=== PATIENT | female | born 2000 | race Two or more races ===

== ENCOUNTER 2024-09-06 09:39 | Outpatient (AMB) | payer MEDICAID, SELFPAY ==
--- NOTE | 2024-09-06 09:55 | OBCLNT_ITS ---
Vital Signs 09/06/24 09:56 Height 1.59 m Height Method Stated Weight 101.661 kg Weight Measurement Method Standing Scale BMI 40.3 BP 122/84 Blood Pressure Source Automatic Cuff Blood Pressure Location Left Upper Arm Position Left Lateral Respiration 18 Pulse 105 H Pulse Source Monitor Temp 97.5 F Temp Source Oral Pulse Oximetry (%) 95 Oxygen Delivery Method Room Air Allergies/Home Meds Allergies & Medications Allergies No Known Allergies Allergy (Verified 09/06/24 09:57) Medication Reconciliation [id number] 1 mg tablet 1 tab PO QDAY 11/02/20 [History Confirmed 09/06/24] Intake Visit Data Collection New Patient or Established: Established Patient (seen at [facility] within 3 years) Reason for Visit:: care Seen by Clinical Staff ONLY (RN/MA): No Passenger Service Representative Required: No Do You Feel Safe at Home: Yes Authorities Contacted: N/A PCP or OBGYN visit in last 3 months: Yes Date of Last PCP or OBGYN visit: 07/09/24 Hx Now: Yes Are you currently on any form of Control: No Last menstrual period: 03/20/21 Pain Present Currently: No Pain Scale Used: Beck-Patel/Numerical Pain scale:: 0 Smoking Status Smoking Status: Never smoker Questionnaires Covid-19 Vaccine Questionnaire Has patient been vacinated for Covid-19 Have you been vacinated for Covid-19: No PHQ-9 PHQ-2 Over the last 2 weeks, how often have you been bothered by any of the following problems? 1. Little interest or pleasure in doing things: not at all 2. Feeling down, depressed, or hopeless: not at all Total score: 0 PHQ-9 3. Trouble falling or staying asleep, or sleeping too much: Not at all 4. Feeling tired or having little energy: Not at all 5. Poor appetite or overeating: Not at all 6. Feeling bad about yourself - or that you are a failure or have let yourself or your family down: Not at all 7. Trouble concentrating on things, such as reading the newspaper or watching television: Not at all 8. Moving or speaking so slowly that other people could have noticed? - Or the opposite - being so fidgety or restless that you have been moving around a lot more than usual: not at all 9. Thoughts that you would be better off or of hurting yourself in some way: Not at all Total score: 0 Source: Developed by Drs. Jose Manuel Cat, Lyla Lee, Sam Epperson and colleagues, with an educational rodrigo from [employer]. Depression screen completed yes Social History Living Situation History Marital Status: Single Lives With: Family Housing: Apartment Housing Other:: pt lives with her parents Tobacco History Smoking Status: Never smoker Second Hand Smoke Exposure: No Alcohol History Alcohol Intake: Former Last Drank: Unknown Substance Use History Substance Use: no Domestic Abuse History Do You Feel Safe at Home: Yes Past Medical History Past Medical History Have you ever been diagnosed with any of the following: Neurological Problems Seizures: No Guillain-[place] Syndrome: No Migraine: No Cardiology Problems Cardiac Arrhythmia: No Heart Murmur: No Hypercholesterolemia: No Deep Vein Thrombosis: No Hypertension: No Respiratory Problems Asthma: No Pneumonia: No Tuberculosis: No Pulmonary Embolism: No Sleep Apnea: No Stomache/Intestinal Problems Hepatitis: No Gall Bladder Disease: No Hemorrhoids: No Gastroesophageal Reflux Disease: No Obesity: No Genital/Urinary Problems Renal Disease: No Kidney Stones: No Reproductive Problems Breast Cancer: No Endometriosis: No Fibroids: No Genital Herpes: No Gonorrhea: No Pelvic Inflammatory Disease: No Polycystic Ovarian Syndrome: No Previous Pregnancies: Yes ( 2020) Syphilis: No Musculoskeletal Problems Rheumatoid Arthritis: No Scoliosis: No Carpal Tunnel Syndrome: No Fibromyalgia: No Endocrine Problems Diabetes Mellitus Type 2: No (Father) Hyperthyroidism: No Hypothyroidism: No (Mother) Systemic Lupus Erythematosus: No Blood Problems Anemia: No Clotting Problems: No Psychologic Problems Depression: No Anxiety: No Attention Deficit Disorder: No Other Problems Hospitalization: Yes (For 2020 [facility]) Autoimmune Disease: No Blood Transfusions: No Surgical History Appendectomy: No Bariatric Surgery: No Cholecystectomy: No History of Present Illness HPI Narrative 23 y/o at 29 weeks presents for OB visit. Started care at [facility]. Having trouble getting follow up appointments. Good FM, no LOF, No UCs, No VB. [facility] records reviewed and up to date. Needs GCT. OB Initial Visit Menstrual History Menstrual reliability: definite Flow: normal Menstrual regularity: regular Monthly: Yes Age at menarche: 11 On control pills at conception: No Date of positive home test: 07/09/24 Associated symptoms (LMP): Reports breast tenderness OB History : 2 Para: 1 Hx Total # of Abortions (Spontaneous & Elective): 0 # of Living Children: 1 Delivery History 1st : date: 03/20/21 sex: female Gestational age at delivery (weeks): 36 Delivery type: vaginal weight (lbs): 2720 g Delivery complications: IOL 36-37 weeks for Gestational HTN. Had epidural Did not push long. At [facility] History of depression before or after : No Infection History & Risk Evaluation History of STDs: none Patient or partner has history of Genital Herpes: No Varicella/chicken pox status: immunized Genetic Screening & History Genetic Screening/Teratology Counseling - Includes patient, baby's father, or anyone in either family with: 1. Patient's age 35 years or older as of estimated date of delivery: No 2. Thalassemia (Armenian, Equatorial Guinean, Mediterranean, or Background); MCV less than 80: No 3. Neural Tube Defect (Meningomyelocele, Spina Bifida, or Anencephaly): No 4. Congenital Heart Defect: No 5. Down Syndrome: No 6. Kwadwo-Sachs (Ashkenazi Oriental Orthodox, Cajun, Maltese [place]): No 7. Dominik Disease (Ashkenazi Oriental Orthodox): No 8. Familial Dysautonomia (Ashkenazi Oriental Orthodox): No 9. Sickle Cell Disease or Trait (): No 10. Hemophilia or other blood disorders: No 11. Muscular Dystrophy: No 12. Cystic Fibrosis: No 13. Stringer's Chorea: No 14. Mental Retardation/Autism: No 15. Other inherited genetic or chromosomal disorder: No 16. Maternal Metabolic Disorder (EG,TYPE 1 Diabetes, PKU): No 17. Patient or baby's father had a child with defects not listed above: No 18. Recurrent loss or a stillbirth: No 19. Medications (including supplements, vitamins, herbs or otc drugs)/illicit/recreational drugs/alcohol since last menstrual period: Yes 20. Any other: No Infection History 1. Live with someone with TB or exposed to TB: No 2. Rash or viral illness since last menstrual period: No 3. Hepatitis B,C: No Other (see comments) Source: [employer] OB Flowsheet OB Flowsheet Initial Weight: Not Recorded Date -?-?-?-?-?-?-?-?-?-?-?-?- EGA Weight Edema CTX Effacement BP Fundal ht Pres Dilation Effacement Station Visit Note Alb Glu FHR Mov 09/06/24 -?-?-?-?-?-?-?-?-?-?-?-?- 29w 1d 101.661 kg 122/84 150 absent Review of Systems Review of Systems Systems Reviewed: All systems reviewed, normal except as documented Assessment & Plan Diagnosis / Problem List (1) : Status: Acute Qualifiers: Weeks of gestation: 29 weeks Qualified Code(s): Z3A.29 - 29 weeks gestation of Additional Plan Ordered 1 hour GCT. All [facility] records reviewed Follow Up: 2 Weeks Office Procedures OB Clinic LOC & Office Proc's Nursing/Assessment Patient Status: Established Patient OB Clinic Nursing Assessment: Medication Reconciliation, Update PMH in EMR and Vital Signs OB Clinic Coordination of Care: Complex Care and Chronic Disease 1-5, Consent,records obtained, informed consent, Education Simp Pt/Fam, Lab and Imaging orders and Staff clarify orders Special Needs: Heart tones Established Patient Charge Established Patient Point Assignment: 130 Established Patient Point Charge: EP Level 4 (120-155) OB Ultrasound OB Ultrasound Indication(s):: Viability Ultrasound technique:: transabdominal Embryo/ Assessment 1: Cardiac activity confirmation:: Yes Placental location & appearance:: Fundal Amniotic fluid assessment:: Adequate
[2024-09-06 09:56] VITALS: BP 122/84; PULSE 105; RESP 18; TEMP 36.4; O2SAT 95; BMI 40.3
== END 2024-09-06 10:30 | disposition home or self-care (01) ==
LOC: HODSOBC 09:39
PROVIDERS: PCP Family Medicine; Supervising Provider Obstetrics & Gynecology; Visit Provider Obstetrics & Gynecology
DX: Z34.83 Encounter for supervision of other normal pregnancy, third trimester (principal); Z3A.29 29 weeks gestation of pregnancy
CPT/HCPCS: 76801; 99214; G0463

== ENCOUNTER 2024-09-25 08:53 | Outpatient (AMB) | payer MEDICAID, SELFPAY ==
[2024-09-25 09:05] VITALS: BP 111/72; PULSE 104; RESP 16; TEMP 36.2; O2SAT 96; BMI 40.2
--- NOTE | 2024-09-25 09:05 | OBCLNT_ITS ---
Vital Signs 09/25/24 09:05 Height 1.59 m Height Method Stated Weight 101.718 kg Weight Measurement Method Standing Scale BMI 40.2 BP 111/72 Blood Pressure Source Automatic Cuff Blood Pressure Location Left Upper Arm Position Sitting Respiration 16 Pulse 104 H Pulse Source Monitor Temp 97.2 F Temp Source Oral Pulse Oximetry (%) 96 Oxygen Delivery Method Room Air Allergies/Home Meds Allergies & Medications Allergies No Known Allergies Allergy (Verified 09/25/24 09:06) Medication Reconciliation [id number] 1 mg tablet 1 tab PO QDAY 11/02/20 [History Confirmed 09/25/24] aspirin 81 mg tablet,delayed release 162 mg (2 x 81 mg) PO QDAY 30 days #60 tabs 09/25/24 [Rx] Intake Visit Data Collection New Patient or Established: Established Patient (seen at [facility] within 3 years) Reason for Visit:: Routine visit at 31 weeks and 2 days gestation. Seen by Clinical Staff ONLY (RN/MA): No Residential Counselor Required: No Do You Feel Safe at Home: Yes Authorities Contacted: N/A PCP or OBGYN visit in last 3 months: Yes Date of Last PCP or OBGYN visit: 09/06/24 Hx Now: Yes Are you currently on any form of Control: No Pain Present Currently: No Pain Scale Used: Beck-Patel/Numerical Pain scale:: 0 Smoking Status Smoking Status: Never smoker Questionnaires Covid-19 Vaccine Questionnaire Has patient been vacinated for Covid-19 Have you been vacinated for Covid-19: Yes PHQ-9 PHQ-2 Over the last 2 weeks, how often have you been bothered by any of the following problems? 1. Little interest or pleasure in doing things: not at all 2. Feeling down, depressed, or hopeless: not at all Total score: 0 PHQ-9 3. Trouble falling or staying asleep, or sleeping too much: Not at all 4. Feeling tired or having little energy: Not at all 5. Poor appetite or overeating: Not at all 6. Feeling bad about yourself - or that you are a failure or have let yourself or your family down: Not at all 7. Trouble concentrating on things, such as reading the newspaper or watching television: Not at all 8. Moving or speaking so slowly that other people could have noticed? - Or the opposite - being so fidgety or restless that you have been moving around a lot more than usual: not at all 9. Thoughts that you would be better off or of hurting yourself in some way: Not at all Total score: 0 Source: Developed by Drs. Jose Manuel Cat, Lyla Lee, Sam Epperson and colleagues, with an educational rodrigo from [employer]. Depression screen completed yes Social History Living Situation History Lives With: Family Housing: Apartment Housing Other:: pt lives with her parents Tobacco History Smoking Status: Never smoker Second Hand Smoke Exposure: No Alcohol History Alcohol Intake: Former Substance Use History Substance Use: no Domestic Abuse History Do You Feel Safe at Home: Yes Past Medical History Past Medical History Have you ever been diagnosed with any of the following: Neurological Problems Cerebrovascular Accident (CVA): No Transient Ischemic Attacks (TIA): No Brain Tumor: No Meningitis: No Seizures: No Multiple Sclerosis: No Cerebral Palsy: No Guillain-Stock[place] Syndrome: No Migraine: No Cardiology Problems Cardiac Arrhythmia: No Atrial Fibrillation: No Angina: No Heart Murmur: No Coronary Artery Disease: No Atherosclerotic Heart Disease: No Hypercholesterolemia: No Aneurysm: No Congestive Heart Failure: No Deep Vein Thrombosis: No Hypertension: No Hypotension: No Varicose Veins: No Respiratory Problems Chronic Obstructive Pulmonary Disease (COPD): No Asthma: No Bronchitis: No Emphysema: No Pneumonia: No Pulmonary Fibrosis: No Tuberculosis: No Pulmonary Embolism: No Pulmonary Edema: No Sleep Apnea: No CPAP Dependent: No Respiratory Aspiration: No Dyspnea: No Orthopnea: No Hx Cough: No Cough: No Wheezing: No Chest Deformities: No Smoking: No Smoking Exposure: No Tobacco Use: No Clubbing: No Exposure to Respiratory Irritants: No Intubation: No Stomache/Intestinal Problems Liver Cancer: No Hepatitis: No Gall Bladder Disease: No Hemorrhoids: No Gastroesophageal Reflux Disease: No Obesity: No Genital/Urinary Problems Renal Disease: No Kidney Stones: No Polycystic Kidney Disease: No Neurogenic Bladder: No Dialysis: No Reproductive Problems Breast Cancer: No Endometriosis: No Fibroids: No Genital Herpes: No Gonorrhea: No Pelvic Inflammatory Disease: No Polycystic Ovarian Syndrome: No Previous Pregnancies: Yes ( 2020) Syphilis: No Musculoskeletal Problems Muscular Dystrophy: No Myasthenia Gravis: No Marfan's Syndrome: No Rheumatoid Arthritis: No Scoliosis: No Carpal Tunnel Syndrome: No Fibromyalgia: No Endocrine Problems Diabetes Mellitus Type 1: No Diabetes Mellitus Type 2: No (Father) Hyperthyroidism: No Hypothyroidism: No (Mother) Systemic Lupus Erythematosus: No Blood Problems Anemia: No Leukemia: No Hemophilia: No Thalassemia: No Sickle Cell Disease: No Clotting Problems: No Psychologic Problems Bipolar Disorder: No Depression: No Anxiety: No Behavior Problems: No Attention Deficit Disorder: No Other Problems Hospitalization: Yes (For [facility]) Down Syndrome: No Autism: No Developmental Delay: No Shingles: No Blood Transfusions: No Blood Transfusion Reaction: No Anesthesia Reactions: No Organ Transplant: No MRSA: No Clostridium Difficile: No Cancer: No Surgical History Appendectomy: No Bariatric Surgery: No Cholecystectomy: No History of Present Illness HPI Narrative Aye Martinez is a 24-year-old at 31 weeks and 2 days gestation presenting for routine care. Her estimated due date is November 21. She was previously receiving care at [facility], but her records are not available for review. The patient has a history of gestational hypertension in her prior , which required delivery at 36 weeks. Her previous delivery was vaginal and uneventful. The patient reports that her recent appointments at the previous clinic were frequently canceled. She has had limited testing, with only two lab tests performed throughout her , including a diabetes screening test completed last Monday. She has experienced difficulties obtaining a referral for ultrasound studies due to administrative issues at her previous clinic. - History of gestational hypertension in previous - Previous required delivery at 36 weeks due to exacerbation of gestational hypertension - Previous vaginal delivery Review of Systems Review of Systems Systems Reviewed: All systems reviewed, normal except as documented Visit GLADYS Calculator Estimated Delivery Date Method Current WG Current Estimate 11/21/24 LMP (Uncertain) 31w 6d Initial Weight: Not Recorded Date -?-?-?-?-?-?-?-?-?-?-?-?- EGA Weight Edema CTX Effacement BP Fundal ht Pres Dilation Effacement Station Visit Note Alb Glu FHR Mov 09/06/24 -?-?-?-?-?-?-?-?-?-?-?-?- 29w 1d 101.661 kg 122/84 150 absent Exam General Limitations: no limitations General Appearance: alert, in no apparent distress, comfortable, cooperative, healthy appearing, well developed and well groomed Head Head exam: atraumatic, normocephalic and normal inspection Neck Neck exam: Present normal inspection, full ROM and trachea midline Chest Chest inspection: Present normal inspection and symmetric chest wall rise Abdominal Abdominal exam: Present soft and normal bowel sounds Extremities Extremities exam: Present normal inspection and full ROM Back Back exam: Present normal inspection and full ROM Psych Psychiatric exam: Present normal affect and normal mood Skin Skin exam: Present warm, dry, intact and normal color Assessment & Plan Diagnosis / Problem List (1) History of pre-eclampsia in prior , currently : Status: Acute (2) Supervision of high risk , unspecified, third trimester: Status: Acute Plan: - Heart rate: 135 beats per minute at 31 weeks 2 days gestation Aye Martinez is a 24-year-old at 31 weeks and 2 days gestation with an estimated due date of November 21. She has a history of gestational hypertension in her previous , which required delivery at 36 weeks. The patient has had limited care and testing at her previous clinic. Recent glucose tolerance test was performed, but results are pending. heart rate was noted to be 135 bpm during this visit. - Order stat referral for detailed ultrasound at [facility] - Perform catch-up labs: CBC, RPR, kidney and liver function tests - Prescribe aspirin for preeclampsia prevention to be filled at [facility] - Schedule follow-up appointment next week to review lab results. - NST-BPP to start immediately. Inadequate care Patient reports multiple canceled appointments and delays in referrals at her previous clinic. She has only had two visits and a recent glucose esdras ance test in her current . Records from her previous care provider are not available for review. - Obtain medical records from [facility] - Perform catch-up labs and testing - Schedule regular visits to ensure adequate monitoring Office Procedures OB Clinic LOC & Office Proc's Nursing/Assessment Patient Status: Established Patient OB Clinic Nursing Assessment: BP Monitoring, Medication Reconciliation, Update PMH in EMR and Vital Signs OB Clinic Coordination of Care: Consent,records obtained, informed consent, Education Simp Pt/Fam and Staff clarify orders Special Needs: Heart tones Established Patient Charge Established Patient Point Assignment: 105 Established Patient Point Charge: EP Level 3 (80-115)
== END 2024-09-25 09:21 | disposition home or self-care (01) ==
LOC: HODSOBC 08:53
PROVIDERS: PCP Family Medicine; Supervising Provider Obstetrics & Gynecology; Visit Provider Obstetrics & Gynecology
DX: O09.93 Supervision of high risk pregnancy, unspecified, third trimester (principal); Z3A.31 31 weeks gestation of pregnancy
CPT/HCPCS: 99213; G0463

== ENCOUNTER 2024-10-01 08:49 | Outpatient (AMB) | payer MEDICAID, SELFPAY ==
[2024-10-01 09:00] VITALS: BP 118/79; PULSE 102; RESP 18; TEMP 36.3; O2SAT 98; BMI 39.9
--- NOTE | 2024-10-01 09:00 | AMB.OBVISIT ---
Vital Signs 10/01/24 09:00 Height 1.6 m Height Method Stated Weight 102.228 kg Weight Measurement Method Standing Scale BMI 39.9 BP 118/79 Blood Pressure Source Automatic Cuff Blood Pressure Location Left Upper Arm Position Sitting Respiration 18 Pulse 102 H Pulse Source Monitor Temp 97.3 F Temp Source Oral Pulse Oximetry (%) 98 Oxygen Delivery Method Room Air Allergies/Home Meds Allergies & Medications Allergies No Known Allergies Allergy (Verified 10/01/24 09:01) Medication Reconciliation [id number] 1 mg tablet 1 tab PO QDAY 11/02/20 [History Confirmed 10/01/24] aspirin 81 mg tablet,delayed release 162 mg (2 x 81 mg) PO QDAY 30 days #60 tabs 09/25/24 [Rx Confirmed 10/01/24] Intake Visit Data Collection New Patient or Established: Established Patient (seen at [facility] within 3 years) Reason for Visit:: CARE/LAB RESULTS 32w5d Seen by Clinical Staff ONLY (RN/MA): No Director Of Event Management Required: No Do You Feel Safe at Home: Yes Authorities Contacted: N/A PCP or OBGYN visit in last 3 months: Yes Date of Last PCP or OBGYN visit: 09/25/24 Hx Now: Yes Are you currently on any form of Control: No Last menstrual period: 03/15/24 Pain Present Currently: No Pain Scale Used: Beck-Patel/Numerical Pain scale:: 0 Smoking Status Smoking Status: Never smoker Questionnaires Covid-19 Vaccine Questionnaire Has patient been vacinated for Covid-19 Have you been vacinated for Covid-19: No PHQ-9 PHQ-2 Over the last 2 weeks, how often have you been bothered by any of the following problems? 1. Little interest or pleasure in doing things: not at all 2. Feeling down, depressed, or hopeless: not at all Total score: 0 PHQ-9 3. Trouble falling or staying asleep, or sleeping too much: Not at all 4. Feeling tired or having little energy: Not at all 5. Poor appetite or overeating: Not at all 6. Feeling bad about yourself - or that you are a failure or have let yourself or your family down: Not at all 7. Trouble concentrating on things, such as reading the newspaper or watching television: Not at all 8. Moving or speaking so slowly that other people could have noticed? - Or the opposite - being so fidgety or restless that you have been moving around a lot more than usual: not at all 9. Thoughts that you would be better off or of hurting yourself in some way: Not at all Total score: 0 Source: Developed by Drs. Jose Manuel Cat, Lyla Lee, Sam Epperson and colleagues, with an educational rodrigo from [employer]. Depression screen completed yes Social History Living Situation History Lives With: Family Housing: Apartment Housing Other:: pt lives with her parents Tobacco History Smoking Status: Never smoker Second Hand Smoke Exposure: No Alcohol History Alcohol Intake: Former Substance Use History Substance Use: no Domestic Abuse History Do You Feel Safe at Home: Yes Past Medical History Past Medical History Have you ever been diagnosed with any of the following: Neurological Problems Cerebrovascular Accident (CVA): No Transient Ischemic Attacks (TIA): No Brain Tumor: No Meningitis: No Seizures: No Multiple Sclerosis: No Cerebral Palsy: No Guillain-Carrie Syndrome: No Migraine: No Cardiology Problems Cardiac Arrhythmia: No Atrial Fibrillation: No Angina: No Heart Murmur: No Coronary Artery Disease: No Atherosclerotic Heart Disease: No Hypercholesterolemia: No Aneurysm: No Congestive Heart Failure: No Deep Vein Thrombosis: No Hypertension: No Hypotension: No Varicose Veins: No Respiratory Problems Chronic Obstructive Pulmonary Disease (COPD): No Asthma: No Bronchitis: No Emphysema: No Pneumonia: No Pulmonary Fibrosis: No Tuberculosis: No Pulmonary Embolism: No Pulmonary Edema: No Sleep Apnea: No CPAP Dependent: No Respiratory Aspiration: No Dyspnea: No Orthopnea: No Hx Cough: No Cough: No Wheezing: No Chest Deformities: No Smoking: No Smoking Exposure: No Tobacco Use: No Clubbing: No Exposure to Respiratory Irritants: No Intubation: No Stomache/Intestinal Problems Liver Cancer: No Hepatitis: No Gall Bladder Disease: No Hemorrhoids: No Gastroesophageal Reflux Disease: No Obesity: No Genital/Urinary Problems Renal Disease: No Kidney Stones: No Polycystic Kidney Disease: No Neurogenic Bladder: No Dialysis: No Reproductive Problems Breast Cancer: No Endometriosis: No Fibroids: No Genital Herpes: No Gonorrhea: No Pelvic Inflammatory Disease: No Polycystic Ovarian Syndrome: No Previous Pregnancies: Yes ( 2020) Syphilis: No Musculoskeletal Problems Muscular Dystrophy: No Myasthenia Gravis: No Marfan's Syndrome: No Bone Cancer: No Arthritis: No Rheumatoid Arthritis: No Osteoporosis: No Degenerative Disk Disease: No Gout: No Scoliosis: No Carpal Tunnel Syndrome: No Fibromyalgia: No Degenerative Joint Disease: No Osteomyelitis: No Poliovirus: No Head,Eye,Nose,Throat Problems Cataracts: No Glaucoma: No Blind: No Retinal Detachment: No Macular Degeneration: No Chronic Ear Infections: No Deafness: No Eye Prosthesis: No Endocrine Problems Diabetes Mellitus Type 1: No Diabetes Mellitus Type 2: No (Father) Hyperthyroidism: No Hypothyroidism: No (Mother) Systemic Lupus Erythematosus: No Blood Problems Anemia: No Leukemia: No Hemophilia: No Thalassemia: No Sickle Cell Disease: No Clotting Problems: No Psychologic Problems Bipolar Disorder: No Depression: No Anxiety: No Behavior Problems: No Attention Deficit Disorder: No Other Problems Hospitalization: Yes (For [facility]) Autoimmune Disease: No Down Syndrome: No Autism: No Developmental Delay: No Shingles: No Blood Transfusions: No Blood Transfusion Reaction: No Anesthesia Reactions: No Organ Transplant: No MRSA: No Clostridium Difficile: No Cancer: No Surgical History Appendectomy: No Bariatric Surgery: No Cholecystectomy: No History of Present Illness HPI Narrative Aye is a 24-year-old at 32 weeks and 5 days presenting for a return visit and review of lab results. She has a history of preeclampsia with 36-week delivery in her prior . On September 26, 2024, the patient denied any obstetric complaints. The patient reports that this feels very different from her previous one. Laboratory, Imaging, and Diagnostic Test Results - CBC, platelet count, CMP, uric acid, LDH, and spot vqudk-kcsrlga-cgccdoclxy ratio are all within normal limits. Review of Systems Review of Systems Systems Reviewed: All systems reviewed, normal except as documented Visit GLADYS Calculator Estimated Delivery Date Method Current WG Current Estimate 11/21/24 LMP (Uncertain) 32w 5d Initial Weight: Not Recorded Date <del>?</del> EGA Weight Edema CTX Effacement BP Fundal ht Pres Dilation Effacement Station Visit Note Alb Glu FHR Mov 09/06/24 <del>?</del> 29w 1d 101.661 kg 122/84 150 absent 10/01/24 <del>?</del> 32w 5d 102.228 kg 118/79 Labs ok. No complaints, 135 Exam General Limitations: no limitations General Appearance: alert, in no apparent distress, comfortable, cooperative, healthy appearing, well developed and well groomed Head Head exam: atraumatic, normocephalic and normal inspection Neck Neck exam: Present normal inspection, full ROM and trachea midline Chest Chest inspection: Present normal inspection and symmetric chest wall rise Abdominal Abdominal exam: Present soft and normal bowel sounds Extremities Extremities exam: Present normal inspection and full ROM Back Back exam: Present normal inspection and full ROM Psych Psychiatric exam: Present normal affect and normal mood Skin Skin exam: Present warm, dry, intact and normal color Assessment & Plan Diagnosis / Problem List (1) History of pre-eclampsia in prior , currently : Status: Acute (2) Supervision of high risk , unspecified, third trimester: Status: Acute Plan: at 32 weeks 5 days, [id number] Patient is a 24-year-old [id number] at 32 weeks and 5 days gestation presenting for routine visit and lab result review. History of preeclampsia with 36-week delivery in prior . Recent labs including CBC, platelet count, CMP, uric acid, LDH, and spot ridyd-keabaqv-tabbkjvgkk ratio are all within normal limits. No current signs of preeclampsia development. Patient denies any obstetric complaints. Current appears to be progressing differently from previous one with preeclampsia. - Pending referral for NST and BPP at the hospital - Pending referral for detailed anatomy ultrasound with maternal- medicine specialist - Continue visits every 2 weeks until 37 weeks, then transition to weekly visits - Monitor for signs of preeclampsia development - Patient to be alert for calls from [facility] for ultrasound appointment (3) Abdominal pain affecting : Status: Acute Additional Assessment MDM: Aye Martinez is a 24-year-old [id number] at 32 weeks and 5 days gestation with a history of preeclampsia in her previous , presenting for a routine visit and lab result review. The patient's recent laboratory tests, including CBC, platelet count, CMP, uric acid, LDH, and spot epfwn-rsexibm-gocbjyzahl ratio, are all within normal limits, indicating no current signs of preeclampsia development. This is particularly reassuring given her history of preeclampsia at 36 weeks in her prior . The normal lab results suggest a lower likelihood of preeclampsia recurring in this , especially considering she has already reached 32 weeks without complications. The clinician notes that if preeclampsia hasn't developed by now, it is very unlikely to occur, supporting a more optimistic prognosis for carrying the to term without early delivery. Additional Plan Follow Up: 2 Weeks Office Procedures OB Clinic LOC & Office Proc's Nursing/Assessment Patient Status: Established Patient OB Clinic Nursing Assessment: Medication Reconciliation, Update PMH in EMR and Vital Signs OB Clinic Coordination of Care: Complex Care and Chronic Disease 1-5, Consent,records obtained, informed consent, Education Simp Pt/Fam, Results/Orders obtained and Staff clarify orders Special Needs: Heart tones Established Patient Charge Established Patient Point Assignment: 120 Established Patient Point Charge: EP Level 4 (120-155)
== END 2024-10-01 09:13 | disposition home or self-care (01) ==
LOC: HODSOBC 08:49
PROVIDERS: PCP Obstetrics & Gynecology; Referring Provider Obstetrics & Gynecology; Supervising Provider Obstetrics & Gynecology; Visit Provider Obstetrics & Gynecology
DX: O09.93 Supervision of high risk pregnancy, unspecified, third trimester (principal); Z3A.32 32 weeks gestation of pregnancy; R10.9 Unspecified abdominal pain
CPT/HCPCS: 99214; G0463

== ENCOUNTER → 2024-10-09 | Outpatient (CLI) | payer MEDICAID, SELFPAY ==
--- NOTE | 2024-10-09 14:30 | XR_ITS ---
Examination: Complete OB ultrasound greater than 14 weeks Date and time of exam: October 09, 2024 at 1443 hours INDICATIONS: Diagnosis high risk , preeclampsia prior pregnancies Findings: Viable intrauterine single fetus with single amniotic sac presentation cephalic Cardiac motion 143 BPM Percent the anterior grade 3 Umbilical cord insertion 3 vessel seen. Amniotic fluid index 13.7 cm spine maternal right Cervix 3.9 cm Right ovary 3.8 cm arterial flow Left ovary 6.6 cm arterial flow to 3.2 x 2.7 x 3.1 cm cyst Composite estimated gestational age based on BPD, head circumference, abdominal circumference, femur length is 33 weeks 5 days Estimated weight 2239 g. Survey of intracranial anatomy, spinal anatomy, abdominal anatomy, four-chamber heart performed with no abnormalities identified. Impression: Viable intrauterine gestation cephalic presentation.
== END | disposition home or self-care (01) ==
PROVIDERS: PCP Obstetrics & Gynecology; Referring Provider Obstetrics & Gynecology; Visit Provider Obstetrics & Gynecology
DX: Z34.90 Encounter for supervision of normal pregnancy, unspecified, unspecified trimester (principal)
CPT/HCPCS: 76805

== ENCOUNTER 2024-10-17 15:28 | Outpatient (AMB) | payer MEDICAID, SELFPAY ==
--- NOTE | 2024-10-17 15:27 | OBCLNT_ITS ---
Vital Signs 10/17/24 15:42 Height 1.6 m Height Method Stated Weight 102.172 kg Weight Measurement Method Standing Scale BMI 39.9 BP 123/80 Blood Pressure Source Automatic Cuff Blood Pressure Location Left Upper Arm Position Sitting Respiration 16 Pulse 113 H Pulse Source Monitor Temp 96.8 F Temp Source Oral Pulse Oximetry (%) 97 Oxygen Delivery Method Room Air Allergies/Home Meds Allergies & Medications Allergies No Known Allergies Allergy (Verified 10/17/24 15:44) Medication Reconciliation [id number] 1 mg tablet 1 tab PO QDAY 11/02/20 [History Confirmed 10/17/24] aspirin 81 mg tablet,delayed release 162 mg (2 x 81 mg) PO QDAY 30 days #60 tabs 09/25/24 [Rx Confirmed 10/17/24] Intake Visit Data Collection New Patient or Established: Established Patient (seen at [facility] within 3 years) Reason for Visit:: OBC Seen by Clinical Staff ONLY (RN/MA): No Computer Numerical Control Machinist Required: No Do You Feel Safe at Home: Yes Authorities Contacted: N/A PCP or OBGYN visit in last 3 months: Yes Date of Last PCP or OBGYN visit: 10/01/24 Hx Now: Yes Are you currently on any form of Control: No Pain Present Currently: Yes Pain Location: Head Pain Scale Used: Beck-Patel/Numerical Pain scale:: 8 Smoking Status Smoking Status: Never smoker Questionnaires Covid-19 Vaccine Questionnaire Has patient been vacinated for Covid-19 Have you been vacinated for Covid-19: Yes PHQ-9 PHQ-2 Over the last 2 weeks, how often have you been bothered by any of the following problems? 1. Little interest or pleasure in doing things: not at all 2. Feeling down, depressed, or hopeless: not at all Total score: 0 PHQ-9 3. Trouble falling or staying asleep, or sleeping too much: Not at all 4. Feeling tired or having little energy: Not at all 5. Poor appetite or overeating: Not at all 6. Feeling bad about yourself - or that you are a failure or have let yourself or your family down: Not at all 7. Trouble concentrating on things, such as reading the newspaper or watching television: Not at all 8. Moving or speaking so slowly that other people could have noticed? - Or the opposite - being so fidgety or restless that you have been moving around a lot more than usual: not at all 9. Thoughts that you would be better off or of hurting yourself in some way: Not at all Total score: 0 If you checked off any problems, how difficult have these problems made it for you to do your work, take care of things at home, or get along with other peopl e?: not difficult at all Source: Developed by Drs. Jose Manuel Cat, Lyla Lee, Sam Epperson and colleagues, with an educational rodrigo from [employer]. Depression screen completed yes Social History Living Situation History Lives With: Family Housing: Apartment Housing Other:: pt lives with her parents Tobacco History Smoking Status: Never smoker Second Hand Smoke Exposure: No Alcohol History Alcohol Intake: Former Substance Use History Substance Use: no Domestic Abuse History Do You Feel Safe at Home: Yes Past Medical History Past Medical History Have you ever been diagnosed with any of the following: Neurological Problems Cerebrovascular Accident (CVA): No Transient Ischemic Attacks (TIA): No Brain Tumor: No Meningitis: No Seizures: No Multiple Sclerosis: No Cerebral Palsy: No Guillain-Crestline Syndrome: No Migraine: No Cardiology Problems Cardiac Arrhythmia: No Atrial Fibrillation: No Angina: No Heart Murmur: No Coronary Artery Disease: No Atherosclerotic Heart Disease: No Hypercholesterolemia: No Aneurysm: No Congestive Heart Failure: No Deep Vein Thrombosis: No Hypertension: No Hypotension: No Varicose Veins: No Respiratory Problems Chronic Obstructive Pulmonary Disease (COPD): No Asthma: No Bronchitis: No Emphysema: No Pneumonia: No Pulmonary Fibrosis: No Tuberculosis: No Pulmonary Embolism: No Pulmonary Edema: No Sleep Apnea: No CPAP Dependent: No Respiratory Aspiration: No Dyspnea: No Orthopnea: No Hx Cough: No Cough: No Wheezing: No Chest Deformities: No Smoking: No Smoking Exposure: No Tobacco Use: No Clubbing: No Exposure to Respiratory Irritants: No Intubation: No Stomache/Intestinal Problems Liver Cancer: No Hepatitis: No Gall Bladder Disease: No Hemorrhoids: No Gastroesophageal Reflux Disease: No Obesity: No Genital/Urinary Problems Renal Disease: No Kidney Stones: No Polycystic Kidney Disease: No Neurogenic Bladder: No Dialysis: No Reproductive Problems Breast Cancer: No Endometriosis: No Fibroids: No Genital Herpes: No Gonorrhea: No Pelvic Inflammatory Disease: No Polycystic Ovarian Syndrome: No Previous Pregnancies: Yes ([facility] 2020) Syphilis: No Musculoskeletal Problems Muscular Dystrophy: No Myasthenia Gravis: No Marfan's Syndrome: No Bone Cancer: No Arthritis: No Rheumatoid Arthritis: No Osteoporosis: No Degenerative Disk Disease: No Gout: No Scoliosis: No Carpal Tunnel Syndrome: No Fibromyalgia: No Degenerative Joint Disease: No Osteomyelitis: No Poliovirus: No Head,Eye,Nose,Throat Problems Cataracts: No Glaucoma: No Blind: No Retinal Detachment: No Macular Degeneration: No Chronic Ear Infections: No Deafness: No Eye Prosthesis: No Endocrine Problems Diabetes Mellitus Type 1: No Diabetes Mellitus Type 2: No (Father) Hyperthyroidism: No Hypothyroidism: No (Mother) Systemic Lupus Erythematosus: No Blood Problems Anemia: No Leukemia: No Hemophilia: No Thalassemia: No Sickle Cell Disease: No Clotting Problems: No Psychologic Problems Bipolar Disorder: No Depression: No Anxiety: No Behavior Problems: No Attention Deficit Disorder: No Other Problems Hospitalization: Yes (For [facility] 2020 [facility]) Down Syndrome: No Autism: No Developmental Delay: No Shingles: No Blood Transfusions: No Blood Transfusion Reaction: No Anesthesia Reactions: No Organ Transplant: No MRSA: No Clostridium Difficile: No Cancer: No Surgical History Appendectomy: No Bariatric Surgery: No Cholecystectomy: No History of Present Illness HPI Narrative Aye Martinez, a 35-week patient, presents for routine follow-up. She reports no contractions or other problems. The patient mentions feeling tired, which is noted as expected for her gestational age. She has been attending regular non-stress tests (NSTs) at the hospital, with her most recent visits occurring last week and this Monday. The patient is currently scheduled for weekly NSTs on Mondays. Aye is a 24-year-old She has a history of preeclampsia with 36- week delivery in her prior . On September 26, 2024, the patient denied any obstetric complaints. The patient reports that this feels very dif ferent from her previous one. Laboratory, Imaging, and Diagnostic Test Results - CBC, platelet count, CMP, uric acid, LDH, and spot uzaza-cqdxlvl-rbfnwbilau ratio are all within normal limits. No CTX/LOF/VB, reports good FM+ Review of Systems Review of Systems Systems Reviewed: All systems reviewed, normal except as documented Visit GLADYS Calculator Estimated Delivery Date Method Current WG Current Estimate 11/21/24 LMP (Uncertain) 35w 5d Initial Weight: Not Recorded Date -?-?-?-?-?-?-?-?-?-?-?-?- EGA Weight Edema CTX Effacement BP Fundal ht Pres Dilation Effacement Station Visit Note Alb Glu FHR Mov 09/06/24 -?-?-?-?-?-?-?-?-?-?-?-?- 29w 1d 101.661 kg 122/84 150 absent 10/01/24 -?-?-?-?-?-?-?-?-?-?-?-?- 32w 5d 102.228 kg 118/79 Lab s ok. No complaints, 135 Exam General Limitations: no limitations General Appearance: alert, in no apparent distress, comfortable, cooperative, healthy appearing, well developed and well groomed Head Head exam: atraumatic, normocephalic and normal inspection ENT ENT exam: Present normal exam, normal oropharynx and mucous membranes moist Neck Neck exam: Present normal inspection, full ROM and trachea midline Card Cardiovascular exam: Present regular rate, normal rhythm and normal heart sounds Abdominal Abdominal exam: Present soft and normal bowel sounds Extremities Extremities exam: Present normal inspection and full ROM Back Back exam: Present normal inspection and full ROM Psych Psychiatric exam: Present normal affect and normal mood Skin Skin exam: Present warm, dry, intact and normal color Assessment & Plan Diagnosis / Problem List (1) History of pre-eclampsia in prior , currently : Status: Acute (2) Supervision of high risk , unspecified, third trimester: Status: Acute Plan: at 35 weeks gestation Aye is a 35-week patient presenting for routine care. She reports feeling tired but denies contractions or other problems. Her blood pressure is 113, which is noted to be normal. She is receiving regular non- stress tests (NSTs) at the hospital on Mondays. - Continue weekly NSTs at the hospital on Mondays - Perform Group B Streptococcus (GBS) culture swab at 36 weeks (next week) - Ultrasound scheduled with Dr. Larsen (maternal- medicine specialist) on Monday - Provide work leave letter for next week as requested by patient - Follow-up appointment scheduled for next Monday Additional Plan Follow Up: 1 Week Office Procedures OB Clinic LOC & Office Proc's Nursing/Assessment Patient Status: Established Patient OB Clinic Nursing Assessment: BP Monitoring, Medication Reconciliation, Update PMH in EMR and Vital Signs OB Clinic Coordination of Care: Consent,records obtained, informed consent, Lab and Imaging orders and Staff clarify orders Special Needs: Heart tones Established Patient Charge Established Patient Point Assignment: 105 Established Patient Point Charge: EP Level 3 (80-115)
[2024-10-17 15:42] VITALS: BP 123/80; PULSE 113; RESP 16; TEMP 36; O2SAT 97; BMI 39.9
== END 2024-10-17 15:48 | disposition home or self-care (01) ==
LOC: HODSOBC 15:28
PROVIDERS: PCP Obstetrics & Gynecology; Referring Provider Obstetrics & Gynecology; Supervising Provider Obstetrics & Gynecology; Visit Provider Obstetrics & Gynecology
DX: O09.293 Supervision of pregnancy with other poor reproductive or obstetric history, third trimester (principal); O09.93 Supervision of high risk pregnancy, unspecified, third trimester; Z3A.35 35 weeks gestation of pregnancy
CPT/HCPCS: 99213; G0463

== ENCOUNTER 2024-10-22 14:04 | Outpatient (AMB) | payer MEDICAID, SELFPAY ==
--- NOTE | 2024-10-22 14:05 | AMB.OBVISIT ---
Vital Signs 10/22/24 14:11 Height 1.6 m Height Method Stated Weight 103.589 kg Weight Measurement Method Standing Scale BMI 40.4 BP 120/78 Blood Pressure Source Automatic Cuff Blood Pressure Location Left Upper Arm Position Sitting Respiration 18 Pulse 98 Pulse Source Monitor Temp 97.3 F Temp Source Oral Pulse Oximetry (%) 98 Oxygen Delivery Method Room Air Allergies/Home Meds Allergies & Medications Allergies No Known Allergies Allergy (Verified 11/13/24 07:54) Medication Reconciliation [id number] 1 mg tablet 1 tab PO QDAY 11/02/20 [History Confirmed 11/13/24] cefpodoxime 200 mg tablet 200 mg PO Q12H pyelonephritis #14 tabs 11/14/24 [Rx] ferrous sulfate 325 mg (65 mg iron) tablet,delayed release 325 mg PO Q OTHER DAY #30 tabs 11/14/24 [Rx] ibuprofen 600 mg tablet 600 mg PO Q6H PRN pain #30 tabs 11/14/24 [Rx] Intake Visit Data Collection New Patient or Established: Established Patient (seen at [facility] within 3 years) Reason for Visit:: - Request for doctor's note to go on leave starting October 24 - Follow-up on recent ultrasound results from Dr. Magana Seen by Clinical Staff ONLY (RN/MA): No Pricing Actuary Required: No Do You Feel Safe at Home: Yes Authorities Contacted: N/A PCP or OBGYN visit in last 3 months: Yes Hx Now: Yes Are you currently on any form of Control: No Pain Present Currently: No Pain Scale Used: Beck-Patel/Numerical Pain scale:: 0 Smoking Status Smoking Status: Never smoker Questionnaires Covid-19 Vaccine Questionnaire Has patient been vacinated for Covid-19 Have you been vacinated for Covid-19: Yes PHQ-9 PHQ-2 Over the last 2 weeks, how often have you been bothered by any of the following problems? 1. Little interest or pleasure in doing things: not at all 2. Feeling down, depressed, or hopeless: not at all Total score: 0 PHQ-9 3. Trouble falling or staying asleep, or sleeping too much: Not at all 4. Feeling tired or having little energy: Not at all 5. Poor appetite or overeating: Not at all 6. Feeling bad about yourself - or that you are a failure or have let yourself or your family down: Not at all 7. Trouble concentrating on things, such as reading the newspaper or watching television: Not at all 8. Moving or speaking so slowly that other people could have noticed? - Or the opposite - being so fidgety or restless that you have been moving around a lot more than usual: not at all 9. Thoughts that you would be better off or of hurting yourself in some way: Not at all Total score: 0 Source: Developed by Drs. Jose Manuel Cat, Lyla Lee, Sam Epperson and colleagues, with an educational rodrigo from [employer]. Depression screen completed yes Social History Living Situation History Lives With: Family Housing: Apartment Housing Other:: pt lives with her parents Tobacco History Smoking Status: Never smoker Second Hand Smoke Exposure: No Alcohol History Alcohol Intake: Former Substance Use History Substance Use: no Domestic Abuse History Do You Feel Safe at Home: Yes Past Medical History Past Medical History Have you ever been diagnosed with any of the following: Neurological Problems Cerebrovascular Accident (CVA): No Transient Ischemic Attacks (TIA): No Brain Tumor: No Meningitis: No Seizures: No Multiple Sclerosis: No Cerebral Palsy: No Guillain-[place] Syndrome: No Migraine: No Cardiology Problems Cardiac Arrhythmia: No Atrial Fibrillation: No Angina: No Heart Murmur: No Coronary Artery Disease: No Atherosclerotic Heart Disease: No Hypercholesterolemia: No Aneurysm: No Congestive Heart Failure: No Deep Vein Thrombosis: No Hypertension: No Hypotension: No Varicose Veins: No Respiratory Problems Chronic Obstructive Pulmonary Disease (COPD): No Asthma: No Bronchitis: No Emphysema: No Pneumonia: No Pulmonary Fibrosis: No Tuberculosis: No Pulmonary Embolism: No Pulmonary Edema: No Sleep Apnea: No CPAP Dependent: No Respiratory Aspiration: No Dyspnea: No Orthopnea: No Hx Cough: No Cough: No Wheezing: No Chest Deformities: No Smoking: No Smoking Exposure: No Tobacco Use: No Clubbing: No Exposure to Respiratory Irritants: No Intubation: No Stomache/Intestinal Problems Liver Cancer: No Hepatitis: No Gall Bladder Disease: No Hemorrhoids: No Gastroesophageal Reflux Disease: No Obesity: No Genital/Urinary Problems Renal Disease: No Kidney Stones: No Polycystic Kidney Disease: No Neurogenic Bladder: No Dialysis: No Reproductive Problems Breast Cancer: No Endometriosis: No Fibroids: No Genital Herpes: No Gonorrhea: No Pelvic Inflammatory Disease: No Polycystic Ovarian Syndrome: No Previous Pregnancies: Yes ([facility] 2020) Syphilis: No Musculoskeletal Problems Muscular Dystrophy: No Myasthenia Gravis: No Marfan's Syndrome: No Bone Cancer: No Arthritis: No Rheumatoid Arthritis: No Osteoporosis: No Degenerative Disk Disease: No Gout: No Scoliosis: No Carpal Tunnel Syndrome: No Fibromyalgia: No Degenerative Joint Disease: No Osteomyelitis: No Poliovirus: No Head,Eye,Nose,Throat Problems Cataracts: No Glaucoma: No Blind: No Retinal Detachment: No Macular Degeneration: No Chronic Ear Infections: No Deafness: No Eye Prosthesis: No Endocrine Problems Diabetes Mellitus Type 1: No Diabetes Mellitus Type 2: No (Father) Hyperthyroidism: No Hypothyroidism: No (Mother) Systemic Lupus Erythematosus: No Blood Problems Anemia: No Leukemia: No Hemophilia: No Thalassemia: No Sickle Cell Disease: No Clotting Problems: No Psychologic Problems Bipolar Disorder: No Depression: No Anxiety: No Behavior Problems: No Attention Deficit Disorder: No Other Problems Hospitalization: Yes (For [facility]) Down Syndrome: No Autism: No Developmental Delay: No Shingles: No Blood Transfusions: No Blood Transfusion Reaction: No Anesthesia Reactions: No Organ Transplant: No MRSA: No Clostridium Difficile: No Cancer: No Surgical History Appendectomy: No Bariatric Surgery: No Cholecystectomy: No History of Present Illness HPI Narrative - Aye Martinez is a patient presenting for follow-up after a recent obstetric ultrasound. - Patient had an ultrasound performed by Dr. Carbone on Monday, October 21, 2024. - Ultrasound findings: - Amniotic fluid measured at 12.9 - weight estimated at 5 pounds and 10 ounces (31st percentile) - Anatomy survey was normal except for a small ventricular septal defect (VSD) in the heart - Patient is requesting a doctor's note to go on leave starting October. - Patient reports qualifying for leave due to working 3 hours. No contractions/ LOF/VB, reports good FM No SANTORO/VC/RUQ/Epig pain Review of Systems Review of Systems Systems Reviewed: All systems reviewed, normal except as documented Visit GLADYS Calculator Estimated Delivery Date Method Current WG Current Estimate 11/21/24 LMP (Uncertain) 40w 1d Initial Weight: Not Recorded Date <del>?</del> EGA Weight Edema CTX Effacement BP Fundal ht Pres Dilation Effacement Station Visit Note Alb Glu FHR Mov 09/06/24 <del>?</del> 29w 1d 101.661 kg 122/84 150 absent 10/01/24 <del>?</del> 32w 5d 102.228 kg 118/79 Labs ok. No complaints, 135 10/22/24 <del>?</del> 35w 5d 103.589 kg 120/78 Aye Martinez, patient, presents for follow-up after recent ultrasound (10/21/[address] Carbone). No CTX/LOF/VB. Reports good FM. No SANTORO/VS, Epig/RUQ pain. Requesting doctor?s note for maternity leave starting 10/24/2024 (qualifies due to 3-hour workday). Ultrasound findings: EMILY: 12.9 EFW: 5 lb 10 oz (31st percentile) Anatomy: Normal except for small VSD Assessment & Plan: VSD noted on anatomy scan; otherwise reassuring growth and fluid levels. Provide leave note for 10/24/2024 Recommend echocardiogram to evaluate VSD 130 active 10/29/24 <del>?</del> 36w 5d 102.739 kg 117/81 She expresses a desire to expedite delivery, citing concerns about an upcoming graduation ceremony in approximately one month. No CTX/LOF/VB, reports good FM+. - Recommend staying active and spending more time on feet - Suggest walking for exercise - Advise using a bouncy ball (gym ball) to sit on to help baby's head descend - Discuss possibility of early induction if patient desires; patient to consider and inform at next week's appointment - Schedule weekly appointments leading up to delivery - Complete physician portion of disability claim form once patient provides necessary information (D-I-I-D or R number) 145 active 11/05/24 <del>?</del> 37w 5d 102.682 kg 125/84 2 para 1 presents for visit at 37 weeks 5 days treated for UTI on triage last week completing antibiotics and symptoms have improved denies any labor complaints care precautions, labor precautions, return in 1 week consider induction of labor at 39 weeks due to patient's need 145 active Exam General General Appearance: alert, in no apparent distress and healthy appearing Head Head exam: atraumatic Neck Neck exam: Present normal inspection and trachea midline Chest Chest inspection: Present normal inspection and symmetric chest wall rise External exam: Present normal external exam; Absent tenderness Neuro Neurological exam: Present oriented X3 Psych Psychiatric exam: Present normal affect and normal mood Assessment & Plan Diagnosis / Problem List (1) History of pre-eclampsia in prior , currently : Status: Acute (2) Supervision of high risk , unspecified, third trimester: Status: Acute Plan Problem List - Ventricular septal defect () Assessment - Ventricular septal defect (VSD) detected in fetus - Amniotic fluid level 12.9 - weight 5 pounds 10 ounces (31st percentile) - Anatomy survey normal except for VSD Plan - Provide doctor's note for maternity leave starting October 24 - Recommend echocardiogram for baby after to assess ventricular septal defect Educated the patient on labor signs, including regular contractions, lower back pain, and changes in vaginal discharge. Advised avoiding heavy lifting and getting adequate rest. Instructed to contact the office immediately if any signs occur. Discussed the importance of a balanced diet rich in folic acid, iron, and calcium, and provided a list of recommended and to-avoid foods. Emphasized avoiding high-sugar foods to reduce gestational diabetes risk. Encouraged hydration and frequent, small meals for energy.. Office Procedures OB Clinic LOC & Office Proc's Nursing/Assessment Patient Status: Established Patient OB Clinic Nursing Assessment: Medication Reconciliation, Update PMH in EMR and Vital Signs OB Clinic Coordination of Care: Complex Care and Chronic Disease 1-5, Consent,records obtained, informed consent, Education Simp Pt/Fam, Lab and Imaging orders and Results/Orders obtained Special Needs: Heart tones Miscellaneous Interventions: Culture Specimen Collection Established Patient Charge Established Patient Point Assignment: 140 Established Patient Point Charge: EP Level 4 (120-155)
[2024-10-22 14:11] VITALS: BP 120/78; PULSE 98; RESP 18; TEMP 36.3; O2SAT 98; BMI 40.4
== END 2024-10-22 14:52 | disposition home or self-care (01) ==
LOC: HODSOBC 14:04
PROVIDERS: PCP Obstetrics & Gynecology; Referring Provider Obstetrics & Gynecology; Supervising Provider Obstetrics & Gynecology; Visit Provider Obstetrics & Gynecology
DX: O09.93 Supervision of high risk pregnancy, unspecified, third trimester (principal); O09.293 Supervision of pregnancy with other poor reproductive or obstetric history, third trimester; Z87.59 Personal history of other complications of pregnancy, childbirth and the puerperium; Z3A.37 37 weeks gestation of pregnancy
CPT/HCPCS: 99214; G0463

== ENCOUNTER 2024-10-29 09:16 | Outpatient (AMB) | payer MEDICAID, SELFPAY ==
[2024-10-29 09:24] VITALS: BP 117/81; PULSE 102; RESP 18; TEMP 36.3; O2SAT 98; BMI 40.1
--- NOTE | 2024-10-29 09:24 | OBCLNT_ITS ---
Vital Signs 10/29/24 09:24 Height 1.6 m Height Method Stated Weight 102.739 kg Weight Measurement Method Standing Scale BMI 40.1 BP 117/81 Blood Pressure Source Automatic Cuff Blood Pressure Location Left Upper Arm Position Sitting Respiration 18 Pulse 102 H Pulse Source Monitor Temp 97.3 F Temp Source Oral Pulse Oximetry (%) 98 Oxygen Delivery Method Room Air Allergies/Home Meds Allergies & Medications Allergies No Known Allergies Allergy (Verified 11/05/24 11:23) Medication Reconciliation [id number] 1 mg tablet 1 tab PO QDAY 11/02/20 [History Confirmed 11/05/24] aspirin 81 mg tablet,delayed release 162 mg (2 x 81 mg) PO QDAY 30 days #60 tabs 09/25/24 [Rx Confirmed 11/05/24] Intake Visit Data Collection New Patient or Established: Established Patient (seen at [facility] within 3 years) Reason for Visit:: CARE Seen by Clinical Staff ONLY (RN/MA): No Process Improvement Analyst Required: No Do You Feel Safe at Home: Yes Authorities Contacted: N/A PCP or OBGYN visit in last 3 months: Yes Hx Now: Yes Are you currently on any form of Control: No Pain Present Currently: No Pain Scale Used: Beck-Patel/Numerical Pain scale:: 0 Smoking Status Smoking Status: Never smoker Questionnaires Covid-19 Vaccine Questionnaire Has patient been vacinated for Covid-19 Have you been vacinated for Covid-19: Yes PHQ-9 PHQ-2 Over the last 2 weeks, how often have you been bothered by any of the following problems? 1. Little interest or pleasure in doing things: not at all 2. Feeling down, depressed, or hopeless: not at all Total score: 0 PHQ-9 3. Trouble falling or staying asleep, or sleeping too much: Not at all 4. Feeling tired or having little energy: Not at all 5. Poor appetite or overeating: Not at all 6. Feeling bad about yourself - or that you are a failure or have let yourself or your family down: Not at all 7. Trouble concentrating on things, such as reading the newspaper or watching television: Not at all 8. Moving or speaking so slowly that other people could have noticed? - Or the opposite - being so fidgety or restless that you have been moving around a lot more than usual: not at all 9. Thoughts that you would be better off or of hurting yourself in some way: Not at all Total score: 0 Source: Developed by Drs. Jose Manuel Cat, Lyla Lee, Sam Epperson and colleagues, with an educational rodrigo from [employer]. Depression screen completed yes Social History Living Situation History Lives With: Family Housing: Apartment Housing Other:: pt lives with her parents Tobacco History Smoking Status: Never smoker Second Hand Smoke Exposure: No Alcohol History Alcohol Intake: Former Substance Use History Substance Use: no Domestic Abuse History Do You Feel Safe at Home: Yes Past Medical History Past Medical History Have you ever been diagnosed with any of the following: Neurological Problems Cerebrovascular Accident (CVA): No Transient Ischemic Attacks (TIA): No Brain Tumor: No Meningitis: No Seizures: No Multiple Sclerosis: No Cerebral Palsy: No Guillain-[place] Syndrome: No Migraine: No Cardiology Problems Cardiac Arrhythmia: No Atrial Fibrillation: No Angina: No Heart Murmur: No Coronary Artery Disease: No Atherosclerotic Heart Disease: No Hypercholesterolemia: No Aneurysm: No Congestive Heart Failure: No Deep Vein Thrombosis: No Hypertension: No Hypotension: No Varicose Veins: No Respiratory Problems Chronic Obstructive Pulmonary Disease (COPD): No Asthma: No Bronchitis: No Emphysema: No Pneumonia: No Pulmonary Fibrosis: No Tuberculosis: No Pulmonary Embolism: No Pulmonary Edema: No Sleep Apnea: No CPAP Dependent: No Respiratory Aspiration: No Dyspnea: No Orthopnea: No Hx Cough: No Cough: No Wheezing: No Chest Deformities: No Smoking: No Smoking Exposure: No Tobacco Use: No Clubbing: No Exposure to Respiratory Irritants: No Intubation: No Stomache/Intestinal Problems Liver Cancer: No Hepatitis: No Gall Bladder Disease: No Hemorrhoids: No Gastroesophageal Reflux Disease: No Obesity: No Genital/Urinary Problems Renal Disease: No Kidney Stones: No Polycystic Kidney Disease: No Neurogenic Bladder: No Dialysis: No Reproductive Problems Breast Cancer: No Endometriosis: No Fibroids: No Genital Herpes: No Gonorrhea: No Pelvic Inflammatory Disease: No Polycystic Ovarian Syndrome: No Previous Pregnancies: Yes ( 2020) Syphilis: No Musculoskeletal Problems Muscular Dystrophy: No Myasthenia Gravis: No Marfan's Syndrome: No Bone Cancer: No Arthritis: No Rheumatoid Arthritis: No Osteoporosis: No Degenerative Disk Disease: No Gout: No Scoliosis: No Carpal Tunnel Syndrome: No Fibromyalgia: No Degenerative Joint Disease: No Osteomyelitis: No Poliovirus: No Head,Eye,Nose,Throat Problems Cataracts: No Glaucoma: No Blind: No Retinal Detachment: No Macular Degeneration: No Chronic Ear Infections: No Deafness: No Eye Prosthesis: No Endocrine Problems Diabetes Mellitus Type 1: No Diabetes Mellitus Type 2: No (Father) Hyperthyroidism: No Hypothyroidism: No (Mother) Systemic Lupus Erythematosus: No Blood Problems Anemia: No Leukemia: No Hemophilia: No Thalassemia: No Sickle Cell Disease: No Clotting Problems: No Psychologic Problems Bipolar Disorder: No Depression: No Anxiety: No Behavior Problems: No Attention Deficit Disorder: No Other Problems Hospitalization: Yes (For 2020 [facility]) Down Syndrome: No Autism: No Developmental Delay: No Shingles: No Blood Transfusions: No Blood Transfusion Reaction: No Anesthesia Reactions: No Organ Transplant: No MRSA: No Clostridium Difficile: No Cancer: No Surgical History Appendectomy: No Bariatric Surgery: No Cholecystectomy: No History of Present Illness HPI Narrative 37-week patient presents for routine visit. She expresses a desire to expedite delivery, citing concerns about an upcoming graduation ceremony in approximately one month. The patient reports recently starting a walking regimen in the mornings, which she was unable to do previously due to work commitments. She inquires about applying for disability benefits, having filed a claim through her previous employer's bank and the [place] GLADYS website. No CTX/LOF/VB, reports good FM+ Review of Systems Review of Systems Systems Reviewed: All systems reviewed, normal except as documented Visit GLADYS Calculator Estimated Delivery Date Method Current WG Current Estimate 11/21/24 LMP (Uncertain) 38w 1d Initial Weight: Not Recorded Date -?-?-?-?-?-?-?-?-?-?-?-?- EGA Weight Edema CTX Effacement BP Fundal ht Pres Dilation Effacement Station Visit Note Alb Glu FHR Mov 09/06/24 -?-?-?-?-?-?-?-?-?-?-?-?- 29w 1d 101.661 kg 122/84 150 absent 10/01/24 -?-?-?-?-?-?-?-?-?-?-?-?- 32w 5d 102.228 kg 118/79 Lab s ok. No complaints, 135 10/29/24 -?-?-?-?-?-?-?-?-?-?-?-?- 36w 5d 102.739 kg 117/81 She expresses a desire to expedite delivery, citing concerns about an upcoming graduation ceremony in approximately one month. No CTX/LOF/VB, reports good FM+. - Recommend staying active and spending more time on feet - Suggest walking for exercise - Advise using a bouncy ball (gym ball) to sit on to help baby's head descend - Discuss possibility of early induction if patient desires; patient to consider and inform at next week's appointment - Schedule weekly appointments leading u p to delivery - Complete physician portion of disabili ty claim form once patient provides necessary information (D-I-I-D or R number) 145 active 11/05/24 -?-?-?-?-?-?-?-?-?-?-?-?- 37w 5d 102.682 kg 125/84 Gra alex 2 para 1 presents for visit at 37 weeks 5 days treated for UTI on triage last week completing antibiotics and symptoms have improved denies any labor complaints care precautions, labor precautions, return in 1 week consider induction of labor at 39 weeks due to patient's need 145 active Assessment & Plan Diagnosis / Problem List (1) History of pre-eclampsia in prior , currently : Status: Acute (2) Supervision of high risk , unspecified, third trimester: Status: Acute (3) Abdominal pain affecting : Status: Acute Plan Aye Martinez, 37 weeks , seeking advice on inducing labor and inquiring about disability benefits. at 37 weeks gestation Assessment: Patient is at 37 weeks gestation and inquiring about methods to induce labor. She has an upcoming graduation on November 27, approximately one month from the visit date, and is concerned about delivering before then. heart rate noted to be 145 bpm, which is within normal range. Plan: - Recommend increased physical activity, including walking and sitting on a bouncy exercise ball to encourage head descent - Discuss possibility of elective induction if patient desires; patient to consider and inform at next week's appointment - Schedule weekly appointments for ongoing care - Follow up in one week Disability benefits inquiry Assessment: Patient has filed a disability claim through the [employer] website related to her previous employment of 3 years. She is currently a student and inquiring about eligibility for disability benefits. Plan: - Patient to provide disability claim confirmation number (D-I-I-D or R number) to front office attendant staff - Will complete physician portion of disability claim form upon receipt of claim number - Advised patient to monitor claim status through GLADYS website login Educated the patient on labor signs, including regular contractions, lower back pain, and changes in vaginal discharge. Advised avoiding heavy lifting and getting adequate rest. Instructed to contact the office immediately if any signs occur. Discussed the importance of a balanced diet rich in folic acid, iron, and calcium, and provided a list of recommended and to-avoid foods. Emphasized avoiding high-sugar foods to reduce gestational diabetes risk. Encouraged hydration and frequent, small meals for energy.. Office Procedures OB Clinic LOC & Office Proc's Nursing/Assessment Patient Status: Established Patient OB Clinic Nursing Assessment: Medication Reconciliation, Update PMH in EMR and Vital Signs OB Clinic Coordination of Care: Complex Care and Chronic Disease 1-5, Consent,records obtained, informed consent, Education Simp Pt/Fam, Results/Orders obtained and Staff clarify orders Special Needs: Heart tones Established Patient Charge Established Patient Point Assignment: 120 Established Patient Point Charge: EP Level 4 (120-155)
== END 2024-10-29 09:43 | disposition home or self-care (01) ==
LOC: HODSOBC 09:16
PROVIDERS: PCP Obstetrics & Gynecology; Referring Provider Obstetrics & Gynecology; Supervising Provider Obstetrics & Gynecology; Visit Provider Obstetrics & Gynecology
DX: O09.293 Supervision of pregnancy with other poor reproductive or obstetric history, third trimester (principal); Z3A.36 36 weeks gestation of pregnancy; Z87.59 Personal history of other complications of pregnancy, childbirth and the puerperium; O99.891 Other specified diseases and conditions complicating pregnancy; R10.9 Unspecified abdominal pain
CPT/HCPCS: 99214; G0463

== ENCOUNTER 2024-10-29 14:54 | Observation (INO) | payer MEDICAID, SELFPAY ==
[2024-10-29] VITALS (18 sets, daily range): BP systolic 123–141; BP diastolic 73–90; PULSE 96–120; RESP 18–97; TEMP 36.8; O2SAT 94–98; BMI 41.3
[2024-10-29 16:31] LABS: Basophils % (Auto) 0 % (0-2.5); Eosinophils # (Auto) 0.1 Thou/mm3 (0.0-0.5); Eosinophils % (Auto) 1 % (0-10); Hematocrit 31.8 % (36.0-46.0); Hemoglobin 10.7 g/dL (12.0-16.0); Immature Granulocytes % (Auto) 0 % (0-0); Immature Granulocytes Auto 0.03 Thou/mm3 (0.00-0.00); Lymphocytes # (Auto) 1.7 Thou/mm3 (1.0-4.8); Lymphocytes % (Auto) 22 % (10-50); Mean Corpuscular HGB Conc 33.6 g/dl (31.0-37.0); Mean Corpuscular Volume 83 fL (80-100); Monocytes # (Auto) 0.7 Thou/mm3 (0.0-0.8); Monocytes % (Auto) 9 % (0-12); Neutrophils # (Auto) 5.3 Thou/mm3 (1.8-7.7); Neutrophils % (Auto) 69 % (37-80); Nucleated Red Blood Cell % 0 /100 WBC (0); Platelet Count 293 Thou/mm3 (140-440); RDW Standard Deviation 43.7 fL (36.4-46.3); Red Blood Count 3.82 Miln/mm3 (4.00-5.20); White Blood Count 7.7 Thou/mm3 (3.6-11.0)
[2024-10-29 16:31] LABS: Collection Type, Urine Clean Catch
[2024-10-29 16:42] LABS: Bacteria,Urine Rare; Bilirubin,Urine Negative (Negative); Blood,Urine 3+ (Negative); Glucose, Urine Negative (Negative); Ketones,Urine Negative (Negative); Leukocyte Esterase,Urine Positive (Negative); Nitrite,Urine Negative (Negative); PH,Urine 6.5 (5.0-7.0); Protein,Urine Trace (Neg - Trace); RBC,Urine 77 /hpf (0-3); Specific Gravity,Urine 1.005 (1.001-1.035); Squamous Epithelial Cell,Urine 11 /hpf (0-5); Urobilinogen,Urine Negative mg/dL (0.0-1.0); WBC,Urine 39 /hpf (0-5)
[2024-10-29 16:53] LABS: Clarity,Urine Hazy (Clear/Hazy); Color,Urine Light-Red (Lt Yel-Yel)
[2024-10-29 16:58] LABS: Creatinine,Random Urine 33 mg/dL (30-125); Protein Total, Random Urine 41 mg/dL (1-14)
[2024-10-29 17:04] LABS: Alanine Aminotransferase 12 U/L (10-49); Albumin, Serum 3.8 gm/dL (3.5-5.0); Albumin/Globulin Ratio 1.5 (1.2-2.2); Alkaline Phosphatase 112 U/L (46-116); Anion Gap 7 (7-16); Aspartate Amino Transferase 17 U/L (0-34); BUN/Creatinine Ratio 10 Ratio (12-20); Bilirubin,Total 0.5 mg/dL (0.3-1.2); Blood Urea Nitrogen 5 mg/dL (9-23); Calcium 9.2 mg/dL (8.3-10.6); Calcium (Corrected) 9.4 mg/dL (8.5-10.1); Carbon Dioxide 21.8 mMol/L (20.0-31.0); Chloride 106 mMol/L (98-107); Creatinine (Component) 0.5 mg/dL (0.6-1.3); Globulin 2.6 gm/dL (2.3-3.5); Glucose 79 mg/dL (74-106); Osmolality,Calculated 266 (275-295); Potassium 3.8 mMol/L (3.4-5.1); Sodium 135 mMol/L (136-145); Total Protein 6.4 gm/dL (5.7-8.2); eGFR > 60 See Note
--- NOTE | 2024-10-29 17:28 | PD.LDPN ---
Documentation for date of: 10/29/24 OB Labor Progress Note Pelvic Exam Amniotic membrane status: Intact Contractions Monitor mode: External Contraction frequency: none Assessment and Plan Comments: Alexia is a 24yo with SIUP at 36&5wk presenting to L&D for blood tinged urine. She has been having frequency and urge of urination- feels bladder pressure that doesn't completely resolve with bladder emptying. No obvious pain with urination. Significantly, she does have a history of pyelonephritis with her prior . She notes no painful/regular ctx, no vaginal bleeding, no loss of fluid. Normal movement. She has had regular OB care with her OBGYN Dr. Caldwell ROS negative other than what was described above. First bp 141/90 but 3 bp's after that all normotensive, afebrile General: well developed, well nourished, no acute distress, conversant Cardiac: normal heart rate Lungs: breathing without distress Abdomen: soft, gravid, non-tender, no rebound or guarding Extremities: no edema of BLE SCE: 1/thick/high. No blood on exam glove noted by RN. NST: Reactive, +accels, no decels, mod [place]: no regular ctx pattern Labs: Urinalysis shows 77 RBC, 39 WBC, rare bacteria, +LE, 11 squam PIH labs wnl (urine p:c was performed, and elevated as expected 2/2 infection) Assessment: Alexia is a 24yo with SIUP at 36&5wk with new diagnosis of UTI based on UA. She has hx of pyelo in previous . Reassuring assessment. Vitals wnl, benign exam. Plan: -Discussed diagnosis and recommendation for increased hydration -Rx keflex 500mg PO QID x 7 days sent to pharmacy -Urine culture ordered, pending. Patient instructed to discuss result with Dr. Caldwell at next follow up visit. -Follow up in 1 week as scheduled -Discussed return precautions including those for sx concerning for pyelonephritis. Della Gant MD
== END 2024-10-29 17:35 | disposition home or self-care (01) ==
PROVIDERS: Admitting Provider Obstetrics & Gynecology; Visit Provider Obstetrics & Gynecology
DX: O23.43 Unspecified infection of urinary tract in pregnancy, third trimester (principal); N39.0 Urinary tract infection, site not specified; Z3A.36 36 weeks gestation of pregnancy
CPT/HCPCS: 36415; 59025; 59899; 80053; 81001; 82570; 84156; 85025; 87086

== ENCOUNTER 2024-11-05 11:00 | Outpatient (AMB) | payer MEDICAID, SELFPAY ==
[2024-11-05 11:22] VITALS: BP 125/84; PULSE 105; RESP 18; TEMP 36.2; O2SAT 97
--- NOTE | 2024-11-05 11:22 | OBCLNT_ITS ---
Vital Signs 11/05/24 11:22 Weight 102.682 kg Weight Measurement Method Standing Scale BP 125/84 Blood Pressure Source Automatic Cuff Blood Pressure Location Left Upper Arm Position Sitting Respiration 18 Pulse 105 H Pulse Source Monitor Temp 97.2 F Temp Source Oral Pulse Oximetry (%) 97 Oxygen Delivery Method Room Air Allergies/Home Meds Allergies & Medications Allergies No Known Allergies Allergy (Verified 11/05/24 11:23) Medication Reconciliation [id number] 1 mg tablet 1 tab PO QDAY 11/02/20 [History Confirmed 11/05/24] aspirin 81 mg tablet,delayed release 162 mg (2 x 81 mg) PO QDAY 30 days #60 tabs 09/25/24 [Rx Confirmed 11/05/24] Intake Visit Data Collection New Patient or Established: Established Patient (seen at [facility] within 3 years) Reason for Visit:: OBC Seen by Clinical Staff ONLY (RN/MA): No Vice President Compliance Required: No Do You Feel Safe at Home: Yes Authorities Contacted: N/A PCP or OBGYN visit in last 3 months: No Date of Last PCP or OBGYN visit: 10/29/24 Hx Now: Yes Are you currently on any form of Control: No Pain Present Currently: No Pain Scale Used: Beck-Patel/Numerical Pain scale:: 0 Smoking Status Smoking Status: Never smoker Questionnaires Covid-19 Vaccine Questionnaire Has patient been vacinated for Covid-19 Have you been vacinated for Covid-19: Yes PHQ-9 PHQ-2 Over the last 2 weeks, how often have you been bothered by any of the following problems? 1. Little interest or pleasure in doing things: not at all 2. Feeling down, depressed, or hopeless: not at all Total score: 0 PHQ-9 3. Trouble falling or staying asleep, or sleeping too much: Not at all 4. Feeling tired or having little energy: Not at all 5. Poor appetite or overeating: Not at all 6. Feeling bad about yourself - or that you are a failure or have let yourself or your family down: Not at all 7. Trouble concentrating on things, such as reading the newspaper or watching television: Not at all 8. Moving or speaking so slowly that other people could have noticed? - Or the opposite - being so fidgety or restless that you have been moving around a lot more than usual: not at all 9. Thoughts that you would be better off or of hurting yourself in some way: Not at all Total score: 0 If you checked off any problems, how difficult have these problems made it for you to do your work, take care of things at home, or get along with other people?: not difficult at all Source: Developed by Drs. Jose Manuel Cat, Lyla Lee, Sam Epperson and colleagues, with an educational rodrigo from [employer]. Depression screen completed yes Social History Living Situation History Lives With: Family Housing: Apartment Housing Other:: pt lives with her parents Tobacco History Smoking Status: Never smoker Second Hand Smoke Exposure: No Alcohol History Alcohol Intake: Former Substance Use History Substance Use: no Domestic Abuse History Do You Feel Safe at Home: Yes Past Medical History Past Medical History Have you ever been diagnosed with any of the following: Neurological Problems Cerebrovascular Accident (CVA): No Transient Ischemic Attacks (TIA): No Brain Tumor: No Meningitis: No Seizures: No Multiple Sclerosis: No Cerebral Palsy: No Guillain-[place] Syndrome: No Migraine: No Cardiology Problems Cardiac Arrhythmia: No Atrial Fibrillation: No Angina: No Heart Murmur: No Coronary Artery Disease: No Atherosclerotic Heart Disease: No Hypercholesterolemia: No Aneurysm: No Congestive Heart Failure: No Deep Vein Thrombosis: No Hypertension: No Hypotension: No Varicose Veins: No Respiratory Problems Chronic Obstructive Pulmonary Disease (COPD): No Asthma: No Bronchitis: No Emphysema: No Pneumonia: No Pulmonary Fibrosis: No Tuberculosis: No Pulmonary Embolism: No Pulmonary Edema: No Sleep Apnea: No CPAP Dependent: No Respiratory Aspiration: No Dyspnea: No Orthopnea: No Hx Cough: No Cough: No Wheezing: No Chest Deformities: No Smoking: No Smoking Exposure: No Tobacco Use: No Clubbing: No Exposure to Respiratory Irritants: No Intubation: No Stomache/Intestinal Problems Liver Cancer: No Hepatitis: No Gall Bladder Disease: No Hemorrhoids: No Gastroesophageal Reflux Disease: No Obesity: No Genital/Urinary Problems Renal Disease: No Kidney Stones: No Polycystic Kidney Disease: No Neurogenic Bladder: No Dialysis: No Reproductive Problems Breast Cancer: No Endometriosis: No Fibroids: No Genital Herpes: No Gonorrhea: No Pelvic Inflammatory Disease: No Polycystic Ovarian Syndrome: No Previous Pregnancies: Yes ( 2020) Syphilis: No Musculoskeletal Problems Muscular Dystrophy: No Myasthenia Gravis: No Marfan's Syndrome: No Bone Cancer: No Arthritis: No Rheumatoid Arthritis: No Osteoporosis: No Degenerative Disk Disease: No Gout: No Scoliosis: No Carpal Tunnel Syndrome: No Fibromyalgia: No Degenerative Joint Disease: No Osteomyelitis: No Poliovirus: No Head,Eye,Nose,Throat Problems Cataracts: No Glaucoma: No Blind: No Retinal Detachment: No Macular Degeneration: No Chronic Ear Infections: No Deafness: No Eye Prosthesis: No Endocrine Problems Diabetes Mellitus Type 1: No Diabetes Mellitus Type 2: No (Father) Hyperthyroidism: No Hypothyroidism: No (Mother) Systemic Lupus Erythematosus: No Blood Problems Anemia: No Leukemia: No Hemophilia: No Thalassemia: No Sickle Cell Disease: No Clotting Problems: No Psychologic Problems Bipolar Disorder: No Depression: No Anxiety: No Behavior Problems: No Attention Deficit Disorder: No Other Problems Hospitalization: Yes (For [facility]) Down Syndrome: No Autism: No Developmental Delay: No Shingles: No Blood Transfusions: No Blood Transfusion Reaction: No Anesthesia Reactions: No Organ Transplant: No MRSA: No Clostridium Difficile: No Cancer: No Surgical History Appendectomy: No Bariatric Surgery: No Cholecystectomy: No History of Present Illness HPI Narrative Aye Martinez, a patient at 37 weeks and 5 days gestation, presents for a routine visit. She was recently treated for a urinary tract infection (UTI) in the emergency room last week. The patient reports experiencing contractions, which she describes as similar to period cramps. These contractions come and go, typically subsiding after a short while. She has also been experiencing significant back pain and pressure in her pelvic area, particularly when sitting and standing up. Aye mentions that these symptoms, including the pressure, are most noticeable in her lower abdomen and vaginal area. Regarding her recent UTI, Aye states she is still taking the prescribed antibiotics (cephalexin 500 mg four times a day for 5 days) and is nearly finished with the course. She admits to occasionally holding her urine at night due to finding a comfortable position and not wanting to get up, which may have contributed to the UTI. The patient expresses concern about her upcoming graduation on November 27 and hopes to attend before going into labor. She reports that during her emergency room visit, she was found to be almost 2 centimeters dilated. No CTX/LOF/VB, reports good FM+ Visit OB Visit Log OB Flowsheet Initial Weight: Not Recorded Date -?-?-?-?-?-?-?-?-?-?-?-?- EGA Weight Edema CTX Effacement BP Fundal ht Pres Dilation Effacement Station Visit Note Alb Glu FHR Mov 09/06/24 -?-?-?-?-?-?-?-?-?-?-?-?- 29w 1d 101.661 kg 122/84 150 absent 10/01/24 -?-?-?-?-?-?-?-?-?-?-?-?- 32w 5d 102.228 kg 118/79 Lab s ok. No complaints, 135 11/05/24 -?-?-?-?-?-?-?-?-?-?-?-?- 37w 5d 102.682 kg 125/84 Gra alex 2 para 1 presents for visit at 37 weeks 5 days treated for UTI on triage last week completing antibiotics and symptoms have improved denies any labor complaints care precautions, labor precautions, return in 1 week consider induction of labor at 39 weeks due to patient's need 145 active GLADYS Calculator Estimated Delivery Date Method Current WG Current Estimate 11/21/24 LMP (Uncertain) 38w 0d Exam General Limitations: no limitations General Appearance: alert, in no apparent distress, comfortable, cooperative, healthy appearing, well developed and well groomed Chest Chest inspection: Present normal inspection and symmetric chest wall rise Abdominal Abdominal exam: Present soft and normal bowel sounds Psych Psychiatric exam: Present normal affect and normal mood Skin Skin exam: Present warm, dry, intact and normal color Assessment & Plan Diagnosis / Problem List (1) History of pre-eclampsia in prior , currently : Status: Acute (2) Supervision of high risk , unspecified, third trimester: Status: Acute (3) Abdominal pain affecting : Status: Acute Plan Aye Martinez, at 37 weeks and 5 days gestation, presents for routine visit following recent emergency room visit for urinary tract infection. at 37 weeks and 5 days gestation Assessment: Patient is at 37 weeks and 5 days gestation, approaching full term. She reports experiencing intermittent contractions resembling menstrual cramps, which subside spontaneously. This is consistent with the onset of early labor. Patient also notes significant back pain and pressure in the pelvic region, particularly when changing positions from sitting to standing. These symptoms are indicative of the fetus's head engaging in the pelvis, a normal occurrence in late-term . At a recent emergency room visit, cervical dilation was noted to be almost 2 cm, suggesting progress towards active labor. Plan: - Schedule next visit in 2 weeks (at 39 weeks and 5 days gestation) - Plan to check cervix and perform membrane sweep at 39 weeks gestation - Advise patient to go to the hospital if contractions occur every 5 minutes, progressively intensify, and do not subside - Educate patient on signs of active labor - Discuss graduation attendance on November 27, noting high likelihood of delivery before this date based on current symptoms Recent urinary tract infection Assessment: Patient was diagnosed with a urinary tract infection (UTI) during an emergency room visit last week. She was prescribed cephalexin 500 mg QID for 5 days and reports near completion of the antibiotic course with good compliance. Plan: - Complete the prescribed course of cephalexin 500 mg QID - Encourage increased water intake - Advise patient to void frequently and avoid prolonged periods without urination - Recommend limiting fluid intake before bedtime to reduce nighttime urination Pt Education Educated the patient on labor signs, including regular contractions, lower back pain, and changes in vaginal discharge. Advised avoiding heavy lifting and getting adequate rest. Instructed to contact the office immediately if any signs occur. Discussed the importance of a balanced diet rich in folic acid, iron, and calcium, and provided a list of recommended and to-avoid foods. Emphasized avoiding high-sugar foods to reduce gestational diabetes risk. Encouraged hydration and frequent, small meals for energy. Office Procedures OB Clinic LOC & Office Proc's Nursing/Assessment Patient Status: Established Patient OB Clinic Nursing Assessment: BP Monitoring, Medication Reconciliation, Update PMH in EMR and Vital Signs OB Clinic Coordination of Care: Consent,records obtained, informed consent, Education Simp Pt/Fam and Staff clarify orders Special Needs: Heart tones Established Patient Charge Established Patient Point Assignment: 105 Established Patient Point Charge: EP Level 3 (80-115)
== END 2024-11-05 11:31 | disposition home or self-care (01) ==
LOC: HODSOBC 11:00
PROVIDERS: Supervising Provider Obstetrics & Gynecology; Visit Provider Obstetrics & Gynecology
DX: O09.293 Supervision of pregnancy with other poor reproductive or obstetric history, third trimester (principal); Z3A.37 37 weeks gestation of pregnancy; O23.43 Unspecified infection of urinary tract in pregnancy, third trimester; O26.893 Other specified pregnancy related conditions, third trimester; R10.9 Unspecified abdominal pain; Z87.59 Personal history of other complications of pregnancy, childbirth and the puerperium
CPT/HCPCS: 99213; G0463

== ENCOUNTER 2024-11-06 09:11 | Outpatient (RCR) | payer MEDICAID, SELFPAY ==
--- NOTE | 2024-10-07 15:11 | XR_ITS ---
Examination: Biophysical profile, ultrasound Date and time of exam: October 07, 2024 1516 hours INDICATIONS: High risk , history preeclampsia in prior pregnancies Technique: Multiple transabdominal sonographic images of the pelvis abdomen obtained. Attention is directed to the breathing movement, gross body movement, amniotic fluid volume and tone. Findings: Amniotic fluid index 14.2 cm Total biophysical profile is 8 of 8. breathing movement is 2. Gross body movement is 2. tone is 2. Qualitative amniotic fluid volume is 2 Impression: Biophysical profile is 8 of 8.
[2024-10-07 15:30] VITALS: BP 119/55; PULSE 99; RESP 16; TEMP 36.7
--- NOTE | 2024-10-14 14:45 | XR_ITS ---
Examination: Biophysical profile, ultrasound Date and time of exam: October 14, 2024 1454 hours INDICATIONS: Pelvic cramping beginning 5 days ago, diagnosis high risk Technique: Multiple transabdominal sonographic images of the pelvis abdomen obtained. Attention is directed to the breathing movement, gross body movement, amniotic fluid volume and tone. Findings: Amniotic fluid index 11.0 cm Total biophysical profile is 8 of 8. breathing movement is 2. Gross body movement is 2. tone is 2. Qualitative amniotic fluid volume is 2 Impression: Biophysical profile is 8 of 8.
[2024-10-14 15:33] VITALS: BP 122/71; PULSE 114; RESP 16; TEMP 37
--- NOTE | 2024-10-22 08:13 | XR_ITS ---
Examination: Biophysical profile, ultrasound Date and time of exam: October 22, 2024 0819 hours INDICATIONS: Diagnosis high risk Technique: Multiple transabdominal sonographic images of the pelvis abdomen obtained. Attention is directed to the breathing movement, gross body movement, amniotic fluid volume and tone. Findings: Amniotic fluid index 9.1 cm Total biophysical profile is 8 of 8. breathing movement is 2. Gross body movement is 2. tone is 2. Qualitative amniotic fluid volume is 2 Impression: Biophysical profile is 8 of 8.
[2024-10-22 08:42] VITALS: BP 125/58; RESP 16; TEMP 36.7
--- NOTE | 2024-10-28 14:38 | XR_ITS ---
Examination: Biophysical profile, ultrasound Date and time of exam: October 1442 hrs. Indications: Diagnosis high risk Technique: Multiple transabdominal sonographic images of the pelvis abdomen obtained. Attention is directed to the breathing movement, gross body movement, amniotic fluid volume and tone. Findings: Amniotic fluid index 11.9 cm Total biophysical profile is 8 of 8. breathing movement is 2. Gross body movement is 2. tone is 2. Qualitative amniotic fluid volume is 2 Impression: Biophysical profile is 8 of 8.
[2024-10-28 15:41] VITALS: BP 128/76; PULSE 96; RESP 16; TEMP 36.7
--- NOTE | 2024-11-06 09:30 | XR_ITS ---
Examination: Biophysical profile, ultrasound Date and time of exam: November 06, 2024 0932 hours INDICATIONS: Diagnosis high risk Technique: Multiple transabdominal sonographic images of the pelvis abdomen obtained. Attention is directed to the breathing movement, gross body movement, amniotic fluid volume and tone. Findings: Amniotic fluid index 8.0 cm Total biophysical profile is 8 of 8. breathing movement is 2. Gross body movement is 2. tone is 2. Qualitative amniotic fluid volume is 2 Impression: Biophysical profile is 8 of 8.
[2024-11-06 10:15] VITALS: BP 122/75; PULSE 117; RESP 16; TEMP 36.7
== END 2024-11-06 23:59 | disposition home or self-care (01) ==
LOC: S4S1 09:11
PROVIDERS: PCP Family Medicine; Referring Provider Obstetrics & Gynecology; Visit Provider Obstetrics & Gynecology
DX: O09.293 Supervision of pregnancy with other poor reproductive or obstetric history, third trimester (principal); O09.893 Supervision of other high risk pregnancies, third trimester; Z3A.37 37 weeks gestation of pregnancy
CPT/HCPCS: 59025; 76819

== ENCOUNTER 2024-11-12 16:11 | Observation (INO) | payer MEDICAID, SELFPAY ==
[2024-11-12 16:16] VITALS: BP 129/73; PULSE 96
[2024-11-12 16:25] VITALS: BP 129/73; PULSE 96; RESP 18; RESP 99; TEMP 36.7
== END 2024-11-12 18:30 | disposition home or self-care (01) ==
PROVIDERS: Admitting Provider Obstetrics & Gynecology; Visit Provider Obstetrics & Gynecology
DX: Z34.83 Encounter for supervision of other normal pregnancy, third trimester (principal); Z3A.38 38 weeks gestation of pregnancy
CPT/HCPCS: 59899; G0378

== ENCOUNTER 2024-11-13 03:46 | Inpatient (IN) | payer MEDICAID, SELFPAY ==
[2024-11-13] VITALS (198 sets, daily range): BP systolic 98–158; BP diastolic 55–88; PULSE 71–114; RESP 16–99; TEMP 36.9–37.9; O2SAT 85–100; BMI 40.4
--- NOTE | 2024-11-13 04:22 | XR_ITS ---
Examination: age Limited Technique: Limited transabdominal sonographic images pelvis Exam date and time: November 13, 2024 0454 hrs. Indications: Unknown presentation Findings: Viable intrauterine gestation cephalic presentation Cardiac motion 153 BPM Impression: Viable intrauterine gestation cephalic presentation
--- NOTE | 2024-11-13 04:26 | XR_ITS ---
Examination: Retroperitoneal ultrasound, complete Technique: Multiple high resolution grayscale images of the retroperitoneum obtained, including kidneys and bladder. Exam date and time:November 13, 2024 0445 hrs. Indications: Left flank pain and frequent urination today Findings: Right kidney 12.6 cm cortex 1.8 cm Left kidney 11.7 cm renal cortex 1.8 cm No hydronephrosis or renal calculi Contracted urinary bladder Impression: No hydronephrosis or renal calculi
[2024-11-13] MEDS: SODIUM CHLORIDE 0.9% 1000 ML 1,000 ML 999 ML IV (04:35)
[2024-11-13 05:02] LABS: Collection Type, Urine Clean Catch
[2024-11-13 05:06] LABS: Basophils % (Auto) 0 % (0-2.5); Eosinophils % (Auto) 0 % (0-10); Hematocrit 31.1 % (36.0-46.0); Hemoglobin 10.8 g/dL (12.0-16.0); Immature Granulocytes % (Auto) 0 % (0-0); Immature Granulocytes Auto 0.03 Thou/mm3 (0.00-0.00); Lymphocytes # (Auto) 1.4 Thou/mm3 (1.0-4.8); Lymphocytes % (Auto) 15 % (10-50); Mean Corpuscular HGB Conc 34.7 g/dl (31.0-37.0); Mean Corpuscular Volume 84 fL (80-100); Monocytes # (Auto) 0.7 Thou/mm3 (0.0-0.8); Monocytes % (Auto) 7 % (0-12); Neutrophils # (Auto) 7.2 Thou/mm3 (1.8-7.7); Neutrophils % (Auto) 77 % (37-80); Nucleated Red Blood Cell % 0 /100 WBC (0); Platelet Count 217 Thou/mm3 (140-440); Red Blood Count 3.72 Miln/mm3 (4.00-5.20); White Blood Count 9.3 Thou/mm3 (3.6-11.0)
[2024-11-13] MEDS: ONDANSETRON INJ 2 MG/ML INJ 2 ML 4 MG IV (05:21)
[2024-11-13 05:23] LABS: Bilirubin,Urine Negative (Negative); Blood,Urine Negative (Negative); Clarity,Urine Turbid (Clear/Hazy); Color,Urine Yellow (Lt Yel-Yel); Glucose, Urine Negative (Negative); Ketones,Urine 3+ (Negative); Leukocyte Esterase,Urine Positive (Negative); Nitrite,Urine Negative (Negative); PH,Urine 6.5 (5.0-7.0); Protein,Urine 1+ (Neg - Trace); RBC,Urine 14 /hpf (0-3); Specific Gravity,Urine 1.028 (1.001-1.035); Squamous Epithelial Cell,Urine 68 /hpf (0-5); Urobilinogen,Urine Negative mg/dL (0.0-1.0); WBC,Urine 84 /hpf (0-5)
[2024-11-13 05:24] LABS: Alanine Aminotransferase 11 U/L (10-49); Albumin, Serum 3.7 gm/dL (3.5-5.0); Albumin/Globulin Ratio 1.5 (1.2-2.2); Alkaline Phosphatase 123 U/L (46-116); Anion Gap 10 (7-16); Aspartate Amino Transferase 14 U/L (0-34); BUN/Creatinine Ratio 14 Ratio (12-20); Bilirubin,Total 0.5 mg/dL (0.3-1.2); Blood Urea Nitrogen 7 mg/dL (9-23); Calcium 8.7 mg/dL (8.3-10.6); Calcium (Corrected) 8.9 mg/dL (8.5-10.1); Carbon Dioxide 24.4 mMol/L (20.0-31.0); Chloride 107 mMol/L (98-107); Creatinine (Component) 0.5 mg/dL (0.6-1.3); Estimated Creatinine Clearance 197.8 mL/min (>60); Globulin 2.5 gm/dL (2.3-3.5); Glucose 101 mg/dL (74-106); Osmolality,Calculated 279 (275-295); Potassium 3.4 mMol/L (3.4-5.1); Sodium 141 mMol/L (136-145); Total Protein 6.2 gm/dL (5.7-8.2); eGFR > 60 See Note
[2024-11-13] MEDS: fentaNYL CIT INJ 50 mCg/ML AMP 2ML 100 MCG IVP (05:29)
[2024-11-13] MEDS: SODIUM CHLORIDE 0.9% 1000 ML 1,000 ML 125 ML IV (05:31)
--- NOTE | 2024-11-13 06:07 | PRELIM_ITS ---
Obstetric ultrasound. November 13, 2024 at 0454 hours Clinical history: Verify presentation Comparison: No prior study is available for comparison. Findings: There is a gravid uterus with a live fetus in cephalic presentation of mean gestational age 38 weeks and 6 days (by clinical dating; biometry not performed). cardiac activity is present at a heart rate of 153 beats per minute. Impression: Gravid uterus with a single live fetus in cephalic presentation of mean gestational age 38 weeks 6 days. Report Electronically Signed By: Magy Harris 11/13/2024 6:07:18 AM [EST]
--- NOTE | 2024-11-13 06:07 | PRELIM_ITS ---
Renal/Retroperitoneal ultrasound. November 13, 2024 at 0445 hours Clinical history: Left sided flank pain Technique: Duplex scan of the bilateral renal arterial and venous tree was performed utilizing 2D grayscale imaging, Doppler spectral analysis and color flow. Comparison: No prior study is available for comparison. Findings: Right: The right kidney measures 12.56 cm and is unremarkable. There is no hydronephrosis or renal calculus. The corticomedullary differentiation is maintained. Left: The left kidney measures 11.73 cm and is unremarkable. There is no hydronephrosis or renal calculus. The corticomedullary differentiation is maintained. Impression: Unremarkable renal ultrasound examination. Report Electronically Signed By: Magy Harris 11/13/2024 6:06:18 AM [EST]
[2024-11-13] MEDS: ACETAMINOPHEN IVPB 1,000 MG/100 ML VIAL 250 MG IV (07:03)
--- NOTE | 2024-11-13 07:49 | PD.LDHP ---
Documentation for date of: 11/13/24 OB Labor/Induct. HPI History of Present Illness Chief complaint: Left flank pain : 2 Term pregnancies: 1 pregnancies: 0 Living children: 1 History of Abortions: Spontaneous and Elective: 0 History of sections: No History of : No GLADYS: 11/21/24 Gestational Age (weeks): 38 Gestational Age (days): 6 Indication for induction: maternal discomfort and other (Possible kidney stones versus pyelonephritis) History of present illness: Patient is a 24-year-old -0-0-1 with all care uncomplicated with Dr. Caldwell at [facility] who presented overnight with flank pain. She was sent home yesterday with the same complaint. She has no white count on admission her urine culture is pending she has some white cells and red cells in her urine. A renal ultrasound was negative for stones. Baby is vertex presentation. She has a history of a vacuum-assisted vaginal delivery with a mediolateral episiotomy in 2020. Patient's states this was because the baby's head was not coming down. That baby was around 6-1/2 pounds. The ultrasound that was ordered did not check weight at this time. Patient is adore irregularly and her exam is 3 cm dilated. She is admitted for augmentation of labor secondary to possible early pyelonephritis versus nephrolithiasis. She will be empirically treated with Ancef during labor. She does desire an epidural. History of Present Dating criteria: LMP confirmed by 1st trimester US Adequate Care: Yes Ultrasounds: normal 1st trimester US and normal mid trimester US Obstetrical complications: none (History of -induced hypertension last history of renal stones versus Pyelo last ) and other Narrative: Suspected pyelonephritis versus nephrolithiasis Labs Maternal Blood Type: O Pos Labs: Positive: Rubella Titre, Negative: RPR, Hepatitis B, HIV, Chlamydia and Gonorrhea and Unknown: Group Beta Strep Past Medical History Surgical History SURGICAL: Negative Section Meds Home Medications and Allergies Home Medications ?Medication ?Instructions ?Recorded ?Confirmed ?Type [id number] 1 mg 1 tab PO QDAY 11/02/20 11/13/24 History tablet Allergies Allergy/AdvReac Type Severity Reaction Status Date / Time No Known Allergies Allergy Verified 11/13/24 07:54 OB Exam Physical Exam Vital signs: Temp Pulse Resp BP Pulse Ox 99.0 F 88 20 120/68 95 11/13/24 04:11 11/13/24 07:22 11/13/24 04:02 11/13/24 07:22 11/13/24 05:40 Routine Abdominal Exam Abdominal: Present soft Comments: Baby approximately 7 pounds by Junito's Detailed Labor and Delivery Exam Dilation (cm): 2-3 Effacement (%): 70 Cervix position: posterior station: -3 Consistency: medium Presentation: Vertex Membranes: intact Baseline heart rate: 145 monitor accelerations: 15x15 monitor decelerations: None extermination supervisor variability: Moderate (11-25) Contraction frequency (min): Irregular OB Results Labs 11/13/24 04:50 11/13/24 04:50 Labs: Short CBC 11/13/24 Range/Units 04:50 WBC 9.3 (3.6-11.0) Thou/mm3 Hgb 10.8 L (12.0-16.0) g/dL Hct 31.1 L (36.0-46.0) % Plt Count 217 D (140-440) Thou/mm3 BMP 11/13/24 04:50 Sodium 141 Potassium 3.4 Chloride 107 Carbon Dioxide 24.4 BUN 7 L Creatinine 0.5 L Glucose 101 Calcium 8.7 Liver Function 11/13/24 Range/Units 04:50 Total Bilirubin 0.5 (0.3-1.2) mg/dL AST 14 (0-34) U/L ALT 11 (10-49) U/L Alkaline Phosphatase 123 H (46-116) U/L Albumin 3.7 (3.5-5.0) gm/dL Urine 11/13/24 Range/Units 04:50 Urine Color Yellow (Lt Yel-Yel) Urine Clarity Turbid A (Clear/Hazy) Urine pH 6.5 (5.0-7.0) Ur Specific [place] 1.028 (1.001-1.035) Urine Protein 1+ A (Neg - Trace) Urine Glucose (UA) Negative (Negative) OB Assessment & Plan Assessment and Plan (1) Supervision of high risk , unspecified, third trimester: Status: Acute Assessment and plan: Cytotec protocol.Ancef empirically.
[2024-11-13] MEDS: ceFAZolin/D5W 1 GM IVPB 1 GM/50 ML BAG IV ×2 (08:19→16:01)
[2024-11-13] MEDS: MISOPROSTOL 50 mCg TABLET PO (08:20)
[2024-11-13] MEDS: fentaNYL CIT INJ 50 mCg/ML AMP 2ML 100 MCG IV (10:17)
[2024-11-13 10:20] LABS: Syphilis Nonreactive (Nonreactive)
[2024-11-13] MEDS: OXYTOCIN in NS 30 units 30 UNIT/500 ML BAG IV (15:30)
[2024-11-13] MEDS: RINGERS LACTATED 1000 ML 1,000 ML 100 ML IV (18:39)
[2024-11-13] MEDS: OXYTOCIN in NS 20 units 20 UNIT/1,000 ML BAG 125 UNIT IV (19:30)
[2024-11-13] MEDS: BENZO/LANO/ALOE (Dermoplast) 60 GM CAN 1 SPRAY TOP (19:37)
--- NOTE | 2024-11-13 19:58 | PD.LDDELS ---
Data ([place]kes) Data Hx Section: No Maternal Blood Type: O Pos Rubella Titre: Negative RPR: Non-reactive Labs: Positive: Group Beta Strep and Negative: RPR, Hepatitis B, HIV, Chlamydia and Gonorrhea : 2 Term: 1 : 0 Livin : 0 Delivery Data (Sykes) Labor Data Stimulated/Augmented: Yes Induction: Yes Method: Cytotec (1 oral dose of 50 mcg Cytotec then low-dose oxytocin AROM 1 hour prior to delivery) ROM Date: 11/13/24 ROM Time: 19:43 Rupture Type: AROM Amniotic Fluid: Clear Delivery Data EDC: 11/13/24 EDC calculated by:: LMP/early US confirmation Labor Onset Stage 1 Date: 11/13/24 Labor Onset Stage 1 Time: 17:44 Labor Onset Stage 2 Date: 11/13/24 Labor Onset Stage 2 Time: 19:10 Delivery Date: 11/13/24 Delivery Time: 19:27 Gestational age (days): 3 Placenta Delivery Date: 11/13/24 Placenta Delivery Time: 19:30 Delivered by: Della Gant Delivery nurse: Hanna Thorne [employer] at delivery: No Support person(s) at delivery: FOB Other staff at delivery: 2nd Nurse Other staff at delivery: Karin Rodriguez Delivery Method Delivery: Vaginal Delivery Type: Spontaneous Presentation: Vertex Position: OA Anesthesia Type Primary Anesthesia: Epidural Secondary Anesthesia: None Delivery Room Medications Other Intrapartum Medications: No Post Delivery Medications N/A: No Placenta Placenta Delivery: Spontaneous Placenta Cultures Obtained: No Placenta Sent for Examination: No Cord Sample: Cord Blood Obtained Episiotomy Episiotomy: None Perineal repair Sutures used for repair: other (2-0 chromic) EBL Estimated blood loss (ml): 150 Umbilical Cord Umbilical Vessels: 3 Nuchal Cord: None Body Cord: None Additional Procedures Patient is a 24-year-old -0-0-1 history of flank pain and dysuria. Patient was seen in triage and sent home and readmitted overnight with persistent flank pain. An ultrasound was negative for stones. Patient denied fevers chills. She did not have a white count on admission. She was adore irregularly and a cervical exam revealed 3 cm dilatation. As the patient was 38-1/2 weeks , she was admitted for augmentation of labor for possible nephrolithiasis versus early pyelonephrosis. Patient was given 1 dose of oral Cytotec and kicked into labor. She got an epidural later in the morning. Low dose pitocin up to 3 mu/min was started. I examined the patient around 5:30 PM and she had progressed to 5 to 6 cm. Amniotomy was performed and patient rapidly went to complete within an hour and pushed through 2 contractions delivering a liveborn male. Findings liveborn male in the CHRIS presentation with no nuchal cord and no meconium Apgars were 9 and 9 weight was 6 pounds 11 ounces. The placenta was complete spontaneous grossly normal delivered within about 3 minutes of the baby delivering. Patient sustained a first-degree perineal laceration repaired in standard fashion using 2-0 chromic. Complications were none. Condition both mom and were in stable condition in the delivery room. Complications Complications: None
--- NOTE | 2024-11-13 22:32 | PC.NURSE ---
2200: patient placed on bedpan due to right leg still unable to support weight. paitient unable to void. epidural catheter removed from back. no bleeding noted. patient transfered to room 465 via wheelchair.
--- NOTE | 2024-11-13 23:58 | PD.LDDELS ---
Data ([facility]) Data Hx Section: No Maternal Blood Type: O Pos Rubella Titre: Negative RPR: Non-reactive Labs: Positive: Group Beta Strep and Negative: RPR, Hepatitis B, HIV, Chlamydia and Gonorrhea : 2 Para: 1 Term: 1 : 0 Livin : 0 Delivery Data ([facility]) Labor Data Stimulated/Augmented: Yes Induction: Yes Method: Cytotec (1 oral dose of 50 mcg Cytotec then low-dose oxytocin AROM 1 hour prior to delivery) ROM Date: 11/13/24 ROM Time: 19:43 Rupture Type: AROM Amniotic Fluid: Clear Delivery Data EDC: 11/21/24 EDC calculated by:: ultrasound (Second trimester) Labor Onset Stage 1 Date: 11/13/24 Labor Onset Stage 1 Time: 17:44 Labor Onset Stage 2 Date: 11/13/24 Labor Onset Stage 2 Time: 19:10 Delivery Date: 11/13/24 Delivery Time: 19:27 Gestational age (weeks): 38 Gestational age (days): 5 Placenta Delivery Date: 11/13/24 Placenta Delivery Time: 19:30 Length stage 2 (minutes): 5 Length stage 3 (minutes): 3 Delivered by: Christina Farah Delivery nurse: Hanna Thorne Manager Respiratory Care at delivery: No Support person(s) at delivery: MARIE Other staff at delivery: Nurse Other staff at delivery: Karin Rodriguez Delivery Method Delivery: Vaginal Delivery Type: Spontaneous Presentation: Vertex Position: OA Anesthesia Type Primary Anesthesia: Epidural Secondary Anesthesia: None Delivery Room Medications Other Intrapartum Medications: No Post Delivery Medications N/A: No Placenta Placenta Delivery: Spontaneous Placenta Cultures Obtained: No Placenta Sent for Examination: No Cord Sample: Cord Blood Obtained Episiotomy Episiotomy: None Lacerations #1: Perineal: 1st degree Perineal repair Sutures used for repair: other (2-0 chromic) EBL Estimated blood loss (ml): 150 Umbilical Cord Umbilical Vessels: 3 Nuchal Cord: None Body Cord: None Additional Procedures The patient is a 24-year-old -0-0-1 admitted with vague flank pain. Diagnosis was pyelonephritis versus nephrolithiasis. She was 3 cm dilated on presentation and over 38 weeks. She was admitted for an augmentation of labor. She had 50 mcg of Cytotec placed in the morning. She had an epidural placed later that afternoon. She had low-dose Pitocin started. She had amniotomy performed approximately 5:30 PM. She delivered an hour later. She progressed to 6 cm to complete in an hour she pushed through 2 contractions delivering a liveborn male. Findings liveborn male in the CHRIS presentation with no nuchal cord or meconium. Apgars were 9 and 9 weight was 6 pounds 11 ounces. The placenta was complete, spontaneous, grossly normal, delivering 3 minutes after the baby delivered. The patient sustained a first-degree perineal laceration repaired in a standard fashion using 2-0 chromic complications were none condition both mom and were in stable condition in the delivery room Complications Complications: None [place] Data ([facility]) Data Gender: Male Infant Weight Grams: 3040 1 Minute Total: 9 5 Minute Total: 9
[2024-11-14] VITALS (11 sets, daily range): BP systolic 118–124; BP diastolic 65–82; PULSE 90–104; RESP 15–19; TEMP 36.8–38.6; O2SAT 96–100
[2024-11-14] MEDS: IBUPROFEN TAB 400 MG TABLET 800 MG PO (00:28)
[2024-11-14] MEDS: ACETAMINOPHEN 325 MG TABLET 650 MG PO (00:57)
[2024-11-14] MEDS: ceFAZolin/D5W 2 GM IV 2 GM/100 ML BAG IV ×3 (01:48→17:22)
[2024-11-14] MEDS: OXYTOCIN in NS 20 units 20 UNIT/1,000 ML BAG 125 UNIT IV (02:29)
[2024-11-14] MEDS: fentaNYL CIT INJ 50 mCg/ML AMP 2ML 100 MCG IV (02:36)
[2024-11-14] MEDS: METHYLERGONOVINE INJ 0.2 MG/ML VIAL IM (02:44)
--- NOTE | 2024-11-14 02:55 | PC.NURSE ---
0223 called to room from PP RN with pt c/o leaking/feeling wet. upon assessment noted saturated peripad. fundal message produced heavy clots. iv pit bolus stated. vss. md diallo called with report. order to give fentanyl for comfort prior to manual extraction of clots by md diallo. order for methergine given im.see mar. new order for cytotec 400mg po buccal x1. 2nd iv started. stat cbc obtained. EBL at this time is 910ml.plan of care to monitor if cont will need to perform dandc. md consented for possible procedure and blood consent. procedure explained by and all questions answered by .
[2024-11-14 03:10] LABS: Basophils % (Auto) 0 % (0-2.5); Eosinophils % (Auto) 0 % (0-10); Hematocrit 26.2 % (36.0-46.0); Hemoglobin 8.9 g/dL (12.0-16.0); Immature Granulocytes % (Auto) 0 % (0-0); Immature Granulocytes Auto 0.04 Thou/mm3 (0.00-0.00); Lymphocytes # (Auto) 1.3 Thou/mm3 (1.0-4.8); Lymphocytes % (Auto) 14 % (10-50); Mean Corpuscular Volume 82 fL (80-100); Monocytes # (Auto) 0.8 Thou/mm3 (0.0-0.8); Monocytes % (Auto) 9 % (0-12); Neutrophils # (Auto) 7.2 Thou/mm3 (1.8-7.7); Neutrophils % (Auto) 77 % (37-80); Nucleated Red Blood Cell % 0 /100 WBC (0); Platelet Count 183 Thou/mm3 (140-440); RDW Standard Deviation 43.7 fL (36.4-46.3); Red Blood Count 3.18 Miln/mm3 (4.00-5.20); White Blood Count 9.4 Thou/mm3 (3.6-11.0)
[2024-11-14] MEDS: MISOPROSTOL 200 mCg TABLET 400 MCG PO (03:10)
--- NOTE | 2024-11-14 03:17 | ESPR_ITS ---
Subjective Subjective Interval history: Patient is a 24-year-old -0-0-2 status post vaginal delivery approximately 1900 on 11/13/2024. Patient was doing well until she got up to stand and passed a lot of clots around 1:30 in the morning. I was called to bedside approximately 2:30 in the morning for continued bleeding. I did give the patient IV fentanyl and extracted some clots. Total EBL by weight is about 700 to 800 cc at this point. Her pulse and blood pressure are stable. Stat CBC, and a second IV line were called for. Extra Pitocin in the bag, IM Methergine and 400 of Cytotec buccally were given. The patient was consented for a blood transfusion and also consented for a dilation curettage and placement of a Bakri balloon if she does not stop bleeding. The father the baby is at bedside. Exam Vital Signs Temp Pulse Resp BP Pulse Ox O2 Del Method 98.9 F 94 17 124/82 96 Room Air 11/14/24 01:51 11/14/24 02:44 11/14/24 00:13 11/14/24 02:44 11/14/24 00:13 11/14/24 00:13 Objective Labs 11/13/24 04:50 11/13/24 04:50 Labs: Laboratory Results - last 24 hr 11/13/24 11/13/24 04:50 09:15 WBC 9.3 RBC 3.72 L Hgb 10.8 L Hct 31.1 L MCV 84 MCH 29.0 MCHC 34.7 RDW Std Deviation 44.0 Plt Count 217 D Neut % (Auto) 77 Lymph % (Auto) 15 [place] % (Auto) 7 Eos % (Auto) 0 Baso % (Auto) 0 Neut # (Auto) 7.2 Lymph # (Auto) 1.4 [place] # (Auto) 0.7 Eos # (Auto) 0.0 Baso # (Auto) 0.0 Immature Gran # (Auto) 0.03 H Absolute Nucleated RBC 0.00 Immature Gran % 0 Nucleated RBC % 0 Sodium 141 Potassium 3.4 Chloride 107 Carbon Dioxide 24.4 Anion Gap 10 BUN 7 L Creatinine 0.5 L Estim Creat Clear Calc 197.8 eGFR > 60 BUN/Creatinine Ratio 14 Glucose 101 Calculated Osmolality 279 Calcium 8.7 Corrected Calcium 8.9 Total Bilirubin 0.5 AST 14 ALT 11 Alkaline Phosphatase 123 H Total Protein 6.2 Albumin 3.7 Globulin 2.5 Albumin/Globulin Ratio 1.5 Ur Collection Type Clean Catch Urine Color Yellow Urine Clarity Turbid A Urine pH 6.5 Ur Specific [place] 1.028 Urine Protein 1+ A Urine Glucose (UA) Negative Urine Ketones 3+ A Urine Blood Negative Urine Nitrite Negative Urine Bilirubin Negative Urine Urobilinogen (Auto) Negative Ur Leukocyte Esterase Positive Urine RBC 14 H Urine WBC 84 H Ur Squamous Epith Cells 68 H Urine Bacteria None Syphilis Serology Nonreactive Blood Type O Positive Antibody Screen NEGATIVE Blood Bank Wristband ID Yes Assessment & Plan Problem List (1) Supervision of high risk , unspecified, third trimester: Status: Acute (2) Term delivered: Status: Acute (3) hemorrhage: Status: Acute Assessment and plan: The patient was given IM Methergine, increased IV Pitocin, and oral Cytotec. The patient has a second line started and is consented for blood. If can if she continues to bleed will consider dilation curettage and placement of Bakri balloon in the operating room. (4) Flank pain: Status: Acute Assessment and plan: Possible nephrolithiasis versus early pyelonephrosis. Continue IV Ancef. Urine culture pending. Urinalysis with white cells and red cells. Ultrasound negative for kidney stones on admission. Patient did have a fever of 101 . Time Spent With Patient Time: Total time spent is greater than 50% in coordination of care (as documented) at patient's floor/unit and/or counseling patient:
--- NOTE | 2024-11-14 08:29 | ESPR_ITS ---
Subjective Subjective Interval history: Patient had an episode of vaginal bleeding early this morning which resolved with uterotonic's. Her vitals are stable and she has no ongoing significant vaginal bleeding. She is voiding and ambulating and tolerating a regular diet. She denies any dizziness or lightheadedness. She denies any chest pain palpitation shortness of breath or lower extremity pain. She denies any depression or anxiety. She has had a fever during her hospitalization with clinical findings consistent with pyelonephritis. Urine culture pending. She has been on Ancef 2 g every 8 hours. She denies any flank pain or dysuria. Exam Vital Signs Temp Pulse Resp BP Pulse Ox O2 Del Method 98.7 F 92 19 123/65 100 Room Air 11/14/24 04:10 11/14/24 04:10 11/14/24 04:10 11/14/24 04:10 11/14/24 04:10 11/14/24 04:10 Routine Cardiovascular Exam Comments: Regular rate and rhythm Routine Abdominal Exam Comments: Fundus is firm and nontender Flank: No CVA tenderness Routine Extremities Exam Comments: Nontender or edema Objective Labs 11/14/24 02:50 11/13/24 04:50 Labs: Laboratory Results - last 24 hr 11/13/24 11/14/24 09:15 02:50 WBC 9.4 RBC 3.18 L Hgb 8.9 L Hct 26.2 L MCV 82 MCH 28.0 MCHC 34.0 RDW Std Deviation 43.7 Plt Count 183 D Neut % (Auto) 77 Lymph % (Auto) 14 [place] % (Auto) 9 Eos % (Auto) 0 Baso % (Auto) 0 Neut # (Auto) 7.2 Lymph # (Auto) 1.3 [place] # (Auto) 0.8 Eos # (Auto) 0.0 Baso # (Auto) 0.0 Immature Gran # (Auto) 0.04 H Absolute Nucleated RBC 0.00 Immature Gran % 0 Nucleated RBC % 0 Syphilis Serology Nonreactive Blood Type O Positive Antibody Screen NEGATIVE Crossmatch See Detail Blood Bank Wristband ID Yes Impressions Impression: day #1 status post spontaneous vaginal delivery hemorrhage resolved with uterotonic's Anemia but hemodynamically stable: Follow CBC results later today Presumptive pyelonephritis: Continue Ancef and add gentamicin Plan to discharge home tomorrow if remains afebrile and clinically improved Encourage ambulation, support, monitor for excessive vaginal bleeding, follow CBC Assessment & Plan Problem List (1) Supervision of high risk , unspecified, third trimester: Status: Acute (2) Term delivered: Status: Acute (3) hemorrhage: Status: Acute (4) Flank pain: Status: Acute Time Spent With Patient Time: Total time spent is greater than 50% in coordination of care (as documented) at patient's floor/unit and/or counseling patient:
[2024-11-14] MEDS: PRENATAL VITAMIN/FE FUM/FA TABLET 1 TAB PO (09:00)
[2024-11-14 09:45] LABS: Basophils % (Auto) 0 % (0-2.5); Eosinophils % (Auto) 0 % (0-10); Hematocrit 29.5 % (36.0-46.0); Immature Granulocytes % (Auto) 1 % (0-0); Immature Granulocytes Auto 0.06 Thou/mm3 (0.00-0.00); Lymphocytes # (Auto) 1.4 Thou/mm3 (1.0-4.8); Lymphocytes % (Auto) 13 % (10-50); Mean Corpuscular HGB Conc 33.9 g/dl (31.0-37.0); Mean Corpuscular Hemoglobin 28.6 pg (25.0-35.0); Mean Corpuscular Volume 84 fL (80-100); Monocytes # (Auto) 0.8 Thou/mm3 (0.0-0.8); Monocytes % (Auto) 7 % (0-12); Neutrophils # (Auto) 8.8 Thou/mm3 (1.8-7.7); Neutrophils % (Auto) 79 % (37-80); Nucleated Red Blood Cell % 0 /100 WBC (0); Platelet Count 202 Thou/mm3 (140-440); RDW Standard Deviation 44.3 fL (36.4-46.3); White Blood Count 11.1 Thou/mm3 (3.6-11.0)
[2024-11-14 10:16] LABS: Basophils % (Auto) 0 % (0-2.5); Eosinophils % (Auto) 0 % (0-10); Hematocrit 27.7 % (36.0-46.0); Hemoglobin 9.1 g/dL (12.0-16.0); Immature Granulocytes % (Auto) 1 % (0-0); Immature Granulocytes Auto 0.06 Thou/mm3 (0.00-0.00); Lymphocytes # (Auto) 2.2 Thou/mm3 (1.0-4.8); Lymphocytes % (Auto) 18 % (10-50); Mean Corpuscular HGB Conc 32.9 g/dl (31.0-37.0); Mean Corpuscular Hemoglobin 27.7 pg (25.0-35.0); Mean Corpuscular Volume 85 fL (80-100); Monocytes % (Auto) 9 % (0-12); Neutrophils # (Auto) 8.7 Thou/mm3 (1.8-7.7); Neutrophils % (Auto) 73 % (37-80); Nucleated Red Blood Cell % 0 /100 WBC (0); Platelet Count 181 Thou/mm3 (140-440); RDW Standard Deviation 44.3 fL (36.4-46.3); Red Blood Count 3.28 Miln/mm3 (4.00-5.20)
[2024-11-15] MEDS: ceFAZolin/D5W 2 GM IV 2 GM/100 ML BAG IV ×2 (01:34→09:37)
[2024-11-15 04:43] VITALS: BP 111/75; PULSE 84; RESP 18; TEMP 36.6; O2SAT 98
--- NOTE | 2024-11-15 07:58 | ESPR_ITS ---
Subjective Subjective Interval history: Patient is a 24-year-old G2 now P2002 status post vaginal delivery 11/13/24. I did deliver her. She did have a fever after delivery and a hemorrhage. Patient was on Ancef and gentamicin overnight. She has been afebrile greater than 48 greater than 24 hours. She is breast-feeding. Her bleeding is minimal. Hemoglobin is stable. She wants to go home. Exam Vital Signs Temp Pulse Resp BP Pulse Ox O2 Del Method 97.8 F 84 18 111/75 98 Room Air 11/15/24 04:43 11/15/24 04:43 11/15/24 04:43 11/15/24 04:43 11/15/24 04:43 11/15/24 04:43 Narrative Exam Patient is in bed resting comfortably with her own pajamas on. Holding baby. Father the baby is at bedside. Fundus is firm nontender extremities show no significant edema or erythema. Objective Labs 11/14/24 09:51 11/13/24 04:50 Labs: Laboratory Results - last 24 hr 11/14/24 11/14/24 08:25 09:51 WBC 11.1 H 12.0 H RBC 3.50 L 3.28 L Hgb 10.0 L 9.1 L Hct 29.5 L 27.7 L MCV 84 85 MCH 28.6 27.7 MCHC 33.9 32.9 RDW Std Deviation 44.3 44.3 Plt Count 202 181 Neut % (Auto) 79 73 Lymph % (Auto) 13 18 [place] % (Auto) 7 9 Eos % (Auto) 0 0 Baso % (Auto) 0 0 Neut # (Auto) 8.8 H 8.7 H Lymph # (Auto) 1.4 2.2 [place] # (Auto) 0.8 1.0 H Eos # (Auto) 0.0 0.0 Baso # (Auto) 0.0 0.0 Immature Gran # (Auto) 0.06 H 0.06 H Absolute Nucleated RBC 0.00 0.00 Immature Gran % 1 H 1 H Nucleated RBC % 0 0 Assessment & Plan Problem List (1) Supervision of high risk , unspecified, third trimester: Status: Acute (2) Term delivered: Status: Acute Assessment and plan: Patient is breast-feeding. Routine care. (3) hemorrhage: Problem details: Hemoglobin stable with no transfusion. No extra bleeding. Status: Acute (4) Flank pain: Problem details: Home on cephalexin Status: Acute Time Spent With Patient Time: Total time spent is greater than 50% in coordination of care (as documented) at patient's floor/unit and/or counseling patient:
--- NOTE | 2024-11-15 08:01 | PD.LDDS ---
DS: Providers Provider Date of admission: 11/13/24 07:43 Primary care physician: Physician No Primary/Family Admitting Provider: Dc Caldwell MD Attending Provider on Admission: Pool Higginbotham MD Consults: 11/13/24 21:52 Referral Routine Comment: Attending Provider on DC: [facility] ([facility]) Discharging Provider: Christina Farah MD ([facility]) Anticipated date of discharge: 11/15/24 DS: Diagnosis Discharge Diagnosis (1) Flank pain: Status: Acute Assessment & Plan: Unclear whether patient had an early pyelonephritis. Treated for 48 hours on Ancef. Gent added for the last 24 hours. Home on cephalexin. (2) hemorrhage: Status: Acute Assessment & Plan: Status post uterotonic's. No blood transfusion. Hemoglobin stable at 9. Home on iron and vitamins. (3) Term delivered: Status: Acute Assessment & Plan: Routine care. Problem List Completed Was Problem List Reviewed/Reconciled?: Yes Summary/Hosp Course Brief History: Patient is a 24-year-old -0-0-1 with all care uncomplicated with Dr. Caldwell at the [facility] who presented overnight with flank pain. She was sent home yesterday with the same complaint. She has no white count on admission her urine culture is pending she has some white cells and red cells in her urine. A renal ultrasound was negative for stones. Baby is vertex presentation. She has a history of a vacuum-assisted vaginal delivery with a mediolateral episiotomy in 2020. Patient's states this was because the baby's head was not coming down. That baby was around 6-1/2 pounds. The ultrasound that was ordered did not check weight at this time. Patient is adore irregularly and her exam is 3 cm dilated. She is admitted for augmentation of labor secondary to possible early pyelonephritis versus nephrolithiasis. She will be empirically treated with Ancef during labor. She does desire an epidural. Peripartum Data Delivery Method: Normal Vaginal Delivery Episiotomy Description: None Laceration Description: yes Procedures: with epidural and first-degree perineal laceration repaired using 2-0 chromic. See delivery note for further information complications: uterine atony (With hemorrhage. Relieved by uterotonic's) and other (Fever after delivery to 101.5 F. Unclear whether its early pyelonephritis or chorioamnionitis. Treated 48 hours on Ancef. Treated 24 hours on gent. Home on cephalexin.) Status at Discharge Functional status at discharge: independent ambulation Overall status at discharge: patient is progressing back to baseline Time Spent with Patient Time attestation: Total time spent providing and/or coordinating discharge services: Specific discharge activities: Pelvic rest x 6 weeks Exam Vital Signs Temp Pulse Resp BP Pulse Ox O2 Del Method 97.8 F 84 18 111/75 98 Room Air 11/15/24 04:43 11/15/24 04:43 11/15/24 04:43 11/15/24 04:43 11/15/24 04:43 11/15/24 04:43 Narrative Exam Alert and oriented x 3 no apparent distress. Fundus firm. Extremities show no significant edema or erythremia. Discharge Plan Plan Patient Disposition: HOME (Self Care) Disposition Comment: Stable Patient condition on transfer: Stable Prescriptions/Referrals Prescriptions/Med Rec: New cefpodoxime 200 mg tablet 200 mg PO Q12H Qty: 14 0RF Rx Instructions: must administer with a meal/food ibuprofen 600 mg tablet 600 mg PO Q6H PRN (Reason: pain) Qty: 30 0RF ferrous sulfate 325 mg (65 mg iron) tablet,delayed release (DR/EC) 325 mg PO Q OTHER DAY Qty: 30 1RF Continued [id number] 1 mg Tablet 1 tab PO QDAY Referrals: No Primary/Family,Physician [Primary Care Provider] - Patient/Caregiver Discharge Instructions Discharge Activity: activity as tolerated Other Discharge Activity Instructions:: Follow up office with primary OB provider within 4-6 weeks or prn. Other Discharge Diet Instructions: General Diet, drink lots of water. Education Materials: After a Vaginal , : Caring for Yourself, Hemorrhage Print Language: Slovenian Activity Restrictions/Additional Instructions: Call with heavy bleeding, severe depression symptoms or severe flank pain with fevers 101 ?F. Stand Alone Forms: [facility] Info., Patient Portal Info Letter Discharge Order Discharge Orders: Discharge (Routine); Ordered 11/15/24 Ordered By: Christina Farah ([facility]) Planned Discharge Date 11/15/24 (2) hemorrhage Qualifiers: hemorrhage type: secondary hemorrhage Qualified Code(s): O72.2 - Delayed and secondary hemorrhage
[2024-11-15 08:50] VITALS: BP 119/79; PULSE 108; RESP 18; TEMP 36.6; O2SAT 97
[2024-11-15] MEDS: PRENATAL VITAMIN/FE FUM/FA TABLET 1 TAB PO (09:36)
== END 2024-11-15 15:05 | disposition home or self-care (01) | DRG 560 ==
LOC: S4SX 14:20 → S4NX 22:22
PROVIDERS: Obstetrics & Gynecology; Admitting Provider Obstetrics & Gynecology; Visit Provider Specialist
DX: O72.1 Other immediate postpartum hemorrhage (principal); Z37.0 Single live birth; O70.0 First degree perineal laceration during delivery
CPT/HCPCS: 36415; 59409; 76770; 76815; 80053; 81001; 85025; 86780; 86850; 86900; 86901; 86923; 94762; J0131; J0689; J1580; J2210; J2405; J2590; J2795; J3010; J7030; J7050; J7120; S0191; A9270

== ENCOUNTER 2024-12-25 15:36 | Outpatient (AMB) | payer MEDICAID, SELFPAY ==
[2024-12-25 16:00] VITALS: BP 118/82; PULSE 74; RESP 17; TEMP 36.4; O2SAT 98; BMI 37.2
--- NOTE | 2024-12-25 16:00 | AMBOBPPN_ITS ---
Vital Signs 12/25/24 16:00 Height 1.6 m Height Method Stated Weight 95.368 kg Weight Measurement Method Standing Scale BMI 37.2 BP 118/82 Blood Pressure Source Automatic Cuff Blood Pressure Location Right Upper Arm Position Sitting Respiration 17 Pulse 74 Pulse Source Monitor Temp 97.6 F Temp Source Temporal Artery Scan Pulse Oximetry (%) 98 Oxygen Delivery Method Room Air Allergies/Home Meds Allergies & Medications Allergies No Known Allergies Allergy (Verified 12/25/24 16:01) Medication Reconciliation [id number] 1 mg tablet 1 tab PO QDAY 11/02/20 [History Confir med 12/25/24] cefpodoxime 200 mg tablet 200 mg PO Q12H pyelonephritis #14 tabs 11/14/24 [Rx Confirmed 12/25/24] ferrous sulfate 325 mg (65 mg iron) tablet,delayed release 325 mg PO Q OTHER DAY #30 tabs 11/14/24 [Rx Confirmed 12/25/24] ibuprofen 600 mg tablet 600 mg PO Q6H PRN pain #30 tabs 11/14/24 [Rx Confirmed 12/25/24] Intake Visit Data Collection New Patient or Established: Established Patient (seen at [facility] within 3 years) Reason for Visit:: Advertising Photographer Required: No Do You Feel Safe at Home: Yes Authorities Contacted: N/A PCP or OBGYN visit in last 3 months: Yes Date of Last PCP or OBGYN visit: 11/15/24 Hx Now: No Are you currently on any form of Control: No Pain Present Currently: No Pain Scale Used: Beck-Patel/Numerical Pain scale:: 0 Smoking Status Smoking Status: Never smoker FOREIGN LANGUAGE INTERPRETER: Past Medical History Past Medical History: No Hx Neurological Disorders, No Hx Hypothyroidism (Mother), No Hx Hyperthyroidism, No Hx Breast Cancer, No Hx Cardiac Disorders, No Hx Hypertension, No Hx Cancer, No Hx Blood Disorders, No Hx Anemia, No Hx Gastrointestinal Disorders, No Hx Renal Disease, No Hx Deep Vein Thrombosis, No Hx Diabetes Mellitus Type 1, No Hx Diabetes Mellitus Type 2 (Father) and No Hx Polycystic Ovarian Syndrome Questionnaires Covid-19 Vaccine Questionnaire Has patient been vacinated for Covid-19 Have you been vacinated for Covid-19: Yes Social History Living Situation History Lives With: Family Housing: House Housing Other:: pt lives with her parents Tobacco History Smoking Status: Never smoker Second Hand Smoke Exposure: No Alcohol History Alcohol Intake: Never Substance Use History Substance Use: no Domestic Abuse History Do You Feel Safe at Home: Yes EPDS - PP Depression Screening Sanders Pospartum Depression Screen I have been able to laugh and see the funny side of things: (0) As much as I always could I have looked forward with enjoyment to things: (0) As much as I ever did I have blamed myself unnecessarily when things went wrong: (0) No, never I have been anxious or worried for no good reason: (0) No, not at all I have felt scared or panicky for no very good reason: (0) No, not at all Things have been getting on top of me: (0) No, I have been coping as well as ever I have been so unhappy that I have had difficulty sleeping: (0) No, not at all I have felt sad or miserable: (0) No, not at all I have been so unhappy that I have been crying: (0) No, never The thought of harming myself has occurred to me: (0) Never EPDS completed yes Care OB Visit Log OB Flowsheet Initial Weight: Not Recorded Date -?-?-?-?-?-?-?-?-?-?-?-?- EGA Weight BP Alb Glu CTX Pres Fundal ht FHR Mov Dilation Station Effaceme nt Hx Notes Visit Note 09/06/24 -?-?-?-?-?-?-?-?-?-?-?-?- 29w 1d 101.661 kg 122/84 150 absent 10/01/24 -?-?-?-?-?-?-?-?-?-?-?-?- 32w 5d 102.228 kg 118/79 135 Labs ok. No complaints, 10/22/24 -?-?-?-?-?-?--?-?-?-?-?-?- 35w 5d 103.589 kg 120/78 130 active Aye Martinez, patient, presents for follow-up after recent ultrasound (10/21/[address] Carbone). No CTX/LOF/VB. Reports good FM. No SANTORO/VS , Epig/RUQ pain. Requesting doctor?s note for maternity jacques ruby starting 10/24/2024 (qualifies due to 3-hour workday). Ultrasound findings: EMILY: 12.9 EFW: 5 lb 10 oz (31st percentile) Anatomy: Normal except for small V SD Assessment & Plan: VSD noted on anatomy scan; otherwi se reassuring growth and fluid levels. Provide leave note for 10/24/2024 Recommend echocardiogram to evaluate VSD 10/29/24 -?-?-?-?-?-?-?-?-?-?-?-?- 36w 5d 102.739 kg 117/81 145 active She expresses a desire to expedite delivery, citing concerns about an upcoming graduation ceremony in approximately one month. No CTX/LOF/VB, reports good FM+. - Recommend staying active and spending more time on feet - Suggest walking for exercise - Advise using a bouncy ball (gym ball) to sit on to help baby's head descend - Discuss possibility of early induction if patient desires; patient to consider and inform at next week's appointment - Schedule weekly appointments leading u p to delivery - Complete physician portion of disabili ty claim form once patient provides nec essary information (D-I-I-D or R number) 11/05/24 -?-?-?-?-?-?-?-?-?-?-?-?- 37w 5d 102.682 kg 125/84 145 active 2 para 1 presents for visit at 37 weeks 5 days treated for UTI on triage last week completing antibiotics and symptoms have improved denies any labor complaints care precautions, labor precautions, return in 1 week consider induction of labor at 39 weeks due to patient's need GLADYS Calculator Estimated Delivery Date Method Current WG Current Estimate 11/21/24 LMP (Uncertain) 46w 6d HPI Interval History: Patient reports managing well with her , though acknowledges challenges keeping up with the baby's needs. She has a toddler starting school in February, which she anticipates will make things easier. 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 She mentions feeling less stressed when occupied with multiple tasks. Patient expresses interest in starting control, stating she wants no more kids. She previously used control pills but discontinued them due to feeling like they made her go crazy. She is concerned about hormonal side effects and weight gain, expressing a desire for a less hormonal option. She reports no significant physical complaints or complications related to her recovery. She has been actively job hunting for a teaching position and considering summer school to keep herself occupied. She is a 24-year-old female, 6 weeks following a normal spontaneous vaginal delivery on November 13, 2024. She has a history of hypertension during , which has since resolved. Patient's obstetric history includes G1 T1 L1, with a healthy delivered via normal spontaneous vaginal delivery on November 13, 2024. She discontinued control pills due to side effects, reporting they made her feel crazy . Patient is currently with low milk production, supplementing with formula. Exam General General Appearance: alert, in no apparent distress and healthy appearing Head Head exam: atraumatic Neck Neck exam: Present normal inspection and trachea midline Chest Chest inspection: Present normal inspection and symmetric chest wall rise External exam: Present normal external exam; Absent tenderness Neuro Neurological exam: Present oriented X3 Psych Psychiatric exam: Present normal affect and normal mood Office Procedures OB Clinic LOC & Office Proc's Nursing/Assessment Patient Status: Established Patient OB Clinic Nursing Assessment: Medication Reconciliation, Update PMH in EMR and Vital Signs OB Clinic Coordination of Care: Complex Care and Chronic Disease 1-5, Consent,records obtained, informed consent, Education Simp Pt/Fam and Staff clarify orders Established Patient Charge Established Patient Point Assignment: 85 Established Patient Point Charge: EP Level 3 (80-115) Assessment & Plan Diagnosis / Problem List (1) Routine Follow-Up: Plan Care Plan: - Continue care. - Encourage continued with formula supplementation as needed. - Extend care period to February 13, 2025. - Patient to call for appointment reminder approximately 34 days before February 13, 2025. Family Planning Plan: - Recommend Xin IUD (levonorgestrel-releasing intrauterine system) for contraception. - Offer ParaGard (non-hormonal copper IUD) as an alternative option. - Patient to research and consider IUD options. - Patient to call and schedule appointment for IUD insertion if she decides to proceed. - Suggest condoms as a non-hormonal alternative. (FP) Tobacco Smoking Status: Never smoker
== END 2024-12-25 16:11 | disposition home or self-care (01) ==
LOC: HODSOBC 15:36
PROVIDERS: Supervising Provider Obstetrics & Gynecology; Visit Provider Obstetrics & Gynecology
DX: Z39.2 Encounter for routine postpartum follow-up (principal)
CPT/HCPCS: 99213; G0463

== ENCOUNTER 2025-03-04 15:10 | Outpatient (AMB) | payer MEDICAID, SELFPAY ==
[2025-03-04 15:43] VITALS: BP 139/88; PULSE 79; RESP 17; TEMP 36.5; O2SAT 99; BMI 38.2
--- NOTE | 2025-03-04 15:43 | AMB.GYNCLNOT ---
Vital Signs 03/04/25 15:43 Height 1.6 m Height Method Measured Weight 97.976 kg Weight Measurement Method Standing Scale BMI 38.2 BP 139/88 H Blood Pressure Source Automatic Cuff Blood Pressure Location Right Upper Arm Position Sitting Respiration 17 Pulse 79 Pulse Source Monitor Temp 97.7 F Temp Source Temporal Artery Scan Pulse Oximetry (%) 99 Oxygen Delivery Method Room Air Allergies/Home Meds Allergies & Medications Allergies No Known Allergies Allergy (Verified 03/04/25 15:44) Intake Visit Data Collection New Patient or Established: Established Patient (seen at [facility] within 3 years) Reason for Visit:: GLADYS EXTENSION Consent obtained for Telemed Visit: No Seen by Clinical Staff ONLY (RN/MA): No Director Of Physician Practices Required: No Do You Feel Safe at Home: Yes Authorities Contacted: N/A PCP or OBGYN visit in last 3 months: Yes Date of Last PCP or OBGYN visit: 12/25/24 Hx Now: No Are you currently on any form of Control: No Last menstrual period: 12/30/24 Pain Present Currently: No Pain Scale Used: Beck-Patel/Numerical Pain scale:: 0 Smoking Status Smoking Status: Never smoker Cook Pickled Meat history Cook Pickled Meat History Menstrual regularity: regular Flow: normal Monthly: Yes Age at menarche: 11 Currently sexually active: Yes FACILITIES ENGINEER: Past Medical History Past Medical History: No Hx Neurological Disorders, No Hx Hypothyroidism (Mother), No Hx Hyperthyroidism, No Hx Breast Cancer, No Hx Cardiac Disorders, No Hx Hypertension, No Hx Cancer, No Hx Blood Disorders, No Hx Anemia, No Hx Gastrointestinal Disorders, No Hx Renal Disease, No Hx Deep Vein Thrombosis, No Hx Diabetes Mellitus Type 1, No Hx Diabetes Mellitus Type 2 (Father) and No Hx Polycystic Ovarian Syndrome Questionnaires Covid-19 Vaccine Questionnaire Has patient been vacinated for Covid-19 Have you been vacinated for Covid-19: Yes PHQ-9 PHQ-2 Over the last 2 weeks, how often have you been bothered by any of the following problems? 1. Little interest or pleasure in doing things: not at all PHQ-9 3. Trouble falling or staying asleep, or sleeping too much: Not at all 4. Feeling tired or having little energy: Not at all 5. Poor appetite or overeating: Not at all 6. Feeling bad about yourself - or that you are a failure or have let yourself or your family down: Not at all 7. Trouble concentrating on things, such as reading the newspaper or watching television: Not at all 8. Moving or speaking so slowly that other people could have noticed? - Or the opposite - being so fidgety or restless that you have been moving around a lot more than usual: not at all 9. Thoughts that you would be better off or of hurting yourself in some way: Not at all If you checked off any problems, how difficult have these problems made it for you to do your work, take care of things at home, or get along with other people?: not difficult at all Source: Developed by Drs. Jose Manuel Cat, Lyla Lee, Sam Epperson and colleagues, with an educational rodrigo from [employer]. Social History Living Situation History Lives With: Family Housing: House Housing Other:: pt lives with her parents Tobacco History Smoking Status: Never smoker Second Hand Smoke Exposure: No Alcohol History Alcohol Intake: Never Substance Use History Substance Use: no Domestic Abuse History Do You Feel Safe at Home: Yes History of Present Illness HPI Narrative Aye Martinez, a female patient, presents today for discussion of a disability extension. The patient had a spontaneous vaginal delivery on November 13, 2024, and has been under treatment for depression since then. Ms. Martinez is requesting an extension of her disability leave. She states that she is planning to return to work this , which is the day after tomorrow. The patient is seeking coverage for her disability from February 12 or until the present date. No specific symptoms or complications related to her period or depression are mentioned in the transcript. The patient does not report any current health concerns or changes in her overall status. She does not mention any ongoing symptoms, treatment adherence issues, or impact on her daily functioning related to her depression. She has a history of spontaneous vaginal delivery on November 13, 2024. She is a female with an obstetric history of G1 T1 L1. She works and is planning to return to work this . She recently traveled to [place]. ROS: Genitourinary: Positive for heavy bleeding. Exam General General Appearance: alert, in no apparent distress and healthy appearing Head Head exam: atraumatic Neck Neck exam: Present normal inspection and trachea midline Chest Chest inspection: Present normal inspection and symmetric chest wall rise External exam: Present normal external exam; Absent tenderness Neuro Neurological exam: Present oriented X3 Psych Psychiatric exam: Present normal affect and normal mood Office Procedures OB Clinic LOC & Office Proc's Nursing/Assessment Patient Status: Established Patient OB Clinic Nursing Assessment: Medication Reconciliation, Update PMH in EMR and Vital Signs OB Clinic Coordination of Care: Complex Care and Chronic Disease 1-5, Consent,records obtained, informed consent, Education Simp Pt/Fam, 4+ Authorizations needed and Results/Orders obtained Established Patient Charge Established Patient Point Assignment: 105 Established Patient Point Charge: EP Level 3 (80-115) Assessment & Plan Diagnosis / Problem List (1) fever: Status: Acute Plan Depression: - Patient delivered spontaneously on November 13, 2024, and has been under treatment for depression since then. - Patient is now ready to return to work, indicating some improvement in her condition. Plan: - Complete disability extension paperwork from February 12 or until Tuesday, March 04, 2025. - Patient to return to work on , March 06, 2025. - No specific follow-up scheduled for depression management.
== END 2025-03-04 16:16 | disposition home or self-care (01) ==
LOC: HODSOBC 15:10
PROVIDERS: Supervising Provider Obstetrics & Gynecology; Visit Provider Obstetrics & Gynecology
DX: O99.345 Other mental disorders complicating the puerperium (principal); F53.0 Postpartum depression; O86.4 Pyrexia of unknown origin following delivery
CPT/HCPCS: 99213; G0463